=== PATIENT | female | born 1980 | race Caucasian/White ===

== ENCOUNTER 2019-11-25 11:53 | Outpatient (CLI) | payer OTHER, SELFPAY ==
--- NOTE | ~2019-11-25 | US_ITS ---
EXAMINATION: US venous doppler [facility] DATE: 11/25/2019 12:32 INDICATION: Left calf pain. TECHNIQUE: Grayscale ultrasound images without and with compression and Doppler ultrasound images of the left lower extremity veins were obtained. COMPARISON: None. FINDINGS: The visualized portions of left common femoral vein, profunda (deep) femoral vein, femoral vein, popl iteal vein, peroneal veins, posterior tibial veins, and greater saphenous vein outflow are patent. IMPRESSION: 1. No deep venous thrombosis. Reviewed, dictated and finalized at location A.
== END 2019-11-25 11:54 | disposition home or self-care (01) ==
PROVIDERS: PCP Family Medicine; Visit Provider Family Medicine
DX: M79.662 Pain in left lower leg (principal)
CPT/HCPCS: 93971

== ENCOUNTER 2020-06-22 06:39 | Outpatient (NON) | payer OTHER, SELFPAY ==
[2020-06-23 19:53] LABS: SARS-CoV-2 RNA PCR Negative
== END 2020-06-22 06:40 ==
LOC: ANHCOVIDDT 07:00
PROVIDERS: PCP Family Medicine; Visit Provider Nurse Practitioner Family
DX: Z20.828 Contact with and (suspected) exposure to other viral communicable diseases (principal); R05 Cough
CPT/HCPCS: 87635; C9803; U0003

== ENCOUNTER 2020-09-16 11:02 | Outpatient (CLI) | payer OTHER, SELFPAY ==
--- NOTE | ~2020-09-16 | US_ITS ---
US soft tissue head and neck 09/16/2020 11:31 Indication: Palpable lumps left anterior and posterior head Procedure: High-resolution Limited ultrasound in the area of palpable concern posterior to the left e ar in the posterior aspect of the head Comparison: No prior studies for comparison. Findings: Posterior to the left ear there is an 8 mm oval hypoechoic mass with internal echoes. No de finite internal vascularity or posterior features. There is parallel orientation. Along the posterior aspect of the head there is an oval complex hypoechoic mass with low level internal echoes, parallel orientation and no significant posterior features or internal vascularity. This mass measures 8 mm. Impression: 1: Complicated hypoechoic masses, most likely cystic, in the areas of palpable concern posterior to t he left ear and posterior head. Consider correlation with contrast-enhanced CT. Reviewed, dictated and finalized at location A. MBLER BICYCLE Impression: 1: Complicated hypoechoic masses, most likely cystic, in the areas of palpable concern posterior to the left ear and posterior head. Consider correlation with contrast-enhanced CT.
== END 2020-09-16 11:03 | disposition home or self-care (01) ==
LOC: ANHIMG 11:04
PROVIDERS: PCP Family Medicine; Visit Provider Physician Assistant
DX: H93.8X9 Other specified disorders of ear, unspecified ear (principal)
CPT/HCPCS: 76536

== ENCOUNTER 2020-09-28 12:36 | Outpatient (CLI) | payer OTHER, SELFPAY ==
--- NOTE | ~2020-09-28 | CT_ITS ---
EXAMINATION: CT brain wo/w con DATE: 09/28/2020 13:25 INDICATION: Posterior headache. Abnormal findings on diagnostic imaging of other specified body struc tures. TECHNIQUE: Computed tomography (CT) of the head was performed without intravenous contrast. The mA wa s adjusted according to patient size. Iterative reconstruction technique was employed. Exam dose: 12 10.67 mGy-cm total exam DLP. COMPARISON: 12/31/2016 CT brain FINDINGS: Focal approximately 9 mm area of hypoattenuation in the right basal ganglia; consider brain examination for further evaluation. No intracranial mass lesion or hemorrhage or cerebrovascular accident is noted otherwise. No midline shift or mass effect. Normal ventricular size. No subdural or epidural hematoma. No orbital mass lesion. There is prominent patchy opacification of ethmoid air cells bilaterally. The frontal, sphenoid and m axillary sinuses appear unremarkable to extent included in this examination. Mastoid air cells are no rmally developed and aerated bilaterally. No fracture or bone destruction of the cranial vault. IMPRESSION: Nonspecific 9 mm area of hypoattenuation in the right basal ganglia; consider MR imaging of the brain for further Patchy bilateral ethmoid air cell opacification Reviewed, dictated and finalized at Location A. Reviewed, dictated and finalized at location B. GER CARDIAC CATH IMPRESSION: Nonspecific 9 mm area of hypoattenuation in the right basal gangli a; consider MR imaging of the brain for further Patchy bilateral ethmoid air cell opacification
== END 2020-09-28 12:37 | disposition home or self-care (01) ==
PROVIDERS: PCP Family Medicine; Visit Provider Physician Assistant
DX: R22.0 Localized swelling, mass and lump, head (principal)
CPT/HCPCS: 70470; Q9967

== ENCOUNTER 2021-01-13 18:03 | Emergency (ER) | payer OTHER, SELFPAY ==
--- NOTE | ~2021-01-13 | XR_ITS ---
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 Pain at left first metatarsal TECHNIQUE: 4 views COMPARISON: None FINDINGS: There is chronic flattening deformity of the third metatarsal head, consistent with prior t rauma or avascular necrosis. No recent fracture or dislocation, periosteal reaction or bone destruction. IMPRESSION: No recent fracture or dislocation Reviewed, dictated and finalized at location A.
[2021-01-13 18:12] VITALS: BP 151/90; PULSE 95; RESP 16; TEMP 36.9; O2SAT 100
--- NOTE | 2021-01-13 18:56 | ED.BACK ---
HPI - Back Pain/Injury General Chief Complaint: Back Pain/Injury Stated Complaint: L FOOT PAIN/BACK PAIN Time Seen by Provider: 01/13/21 18:20 Source: patient and RN notes reviewed Mode of arrival: ambulatory Limitations: no limitations History of Present Illness HPI Narrative: Patient presents today complaining of left foot pain and low back pain. 4 days ago, patient stepped on an item in her home with her left foot and also twisted as she fell. She has been having difficulty walking due to foot and back pain since this time. She currently rates her pain 8/10 and has been taking ibuprofen without much relief. History of neuropathy in her feet. Denies numbness or tingling worse than normal in her feet. Denies numbness or tingling in her genitals. Denies any loss of bowel or bladder control. MD elicited complaint: back pain and other (Left foot pain) Related Data Allergies Allergy/AdvReac Type Severity Reaction Status Date / Time Penicillins Allergy Severe HIVES Verified 01/13/21 18:21 amoxicillin Allergy Intermediate Rash Verified 01/13/21 18:21 Review of Systems Review of Systems: Narrative: CONSTITUTIONAL: Denies body aches, fever, chills, or sweats. EYES: Denies visual changes, redness, or discharge. ENT: Denies rhinorrhea, congestion, sore throat, or otalgia. CARDIOVASCULAR: Denies chest pain, palpitations, or edema. RESPIRATORY: Denies cough or dyspnea. GASTROINTESTINAL: Denies abdominal pain, nausea, vomiting, or diarrhea. GENITOURINARY: Denies dysuria or hematuria. SKIN: Denies rash, itching, or wounds. MUSCULOSKELETAL: Denies myalgia.+ Low back pain, left foot pain NEUROLOGIC: Denies headache, numbness, tingling, or weakness. PSYCH: Denies depression or anxiety. [facility] Past Medical History Medical History Anxiety Asthma Depression Elevated blood pressure reading GERD (gastroesophageal reflux disease) GERD (gastroesophageal reflux disease) HLD (hyperlipidemia) Hx of migraines Left anterior knee pain Migraines Mild intermittent asthma without complication Neuropathy Peripheral neuropathy Seasonal allergies Wellness examination Surgical History Surgical History H/O dilation and curettage H/O tubal ligation H/O: hysterectomy History of tonsillectomy Hx of cholecystectomy S/P hysterectomy Family History Family History Father Hypertension Asthma Family history of heart disease in male family member before age 55 Family history of malignant melanoma Mother Hypertension Family history of kidney disease Family history of diabetes mellitus in first degree relative Diabetes mellitus Grandparent Family history of arthritis Family history of primary malignant neoplasm of liver Family history of heart disease in male family member before age 55 Other Alzheimer's disease Cerebrovascular accident Heart disease Social History Social History Smoking packs per day: 0.5 Smoking cigarettes per day: 10.0 Years smoked: 15 Smoking pack-years: 7.50 Smoking status: Former smoker Tobacco type: cigarettes Second hand tobacco smoke exposure: No Alcohol intake: current Substance use: never Substance use type: does not use Gender identity (if verbalized by the patient): Female Comments At time of signature, I have reviewed and agree with nursing past medical, surgical, social and family history unless otherwise noted. Please see nursing chart for further information. There is no relevant family history pertinent to the presenting complaint Exam Narrative: Exam Narrative: GENERAL: Well-appearing, well-nourished, and in no acute distress. HEAD: Normocephalic, atraumatic. EYES: EOMI. No redness or drainage. Conjunctivae normal. ENT: Mucous
== END 2021-01-13 19:00 | disposition home or self-care (01) ==
PROVIDERS: Emergency Provider Nurse Practitioner; PCP Family Medicine
DX: S99.922A Unspecified injury of left foot, initial encounter (principal); W18.09XA Striking against other object with subsequent fall, initial encounter; S39.012A Strain of muscle, fascia and tendon of lower back, initial encounter; Z87.891 Personal history of nicotine dependence; J45.909 Unspecified asthma, uncomplicated; K21.9 Gastro-esophageal reflux disease without esophagitis; E78.5 Hyperlipidemia, unspecified; G62.9 Polyneuropathy, unspecified
CPT/HCPCS: 73630; 99213; G0463

== ENCOUNTER 2021-03-07 14:28 | Emergency (ER) | payer OTHER, SELFPAY ==
--- NOTE | ~2021-03-07 | XR_ITS ---
EXAMINATION: XR knee LT 3V DATE: 03/07/2021 15:17 INDICATION: Left knee pain TECHNIQUE: Four views of the left knee were obtained. COMPARISON: None. FINDINGS: Alignment is normal. No fracture or osteochondral lesion. There is mild tricompartmental os teoarthritis characterized by tiny marginal osteophytes. There is a small knee joint effusion. Soft t issues are unremarkable. IMPRESSION: 1. Small knee joint effusion. Reviewed, dictated and finalized at location A.
[2021-03-07 14:30] VITALS: BP 149/104; PULSE 87; RESP 16; O2SAT 99
[2021-03-07 15:49] LABS: Basophils Absolute Auto 0.1 K/mm3 (0.0-0.1); Basophils Percent Auto 0.7 % (0.2-1.2); Eosinophils Absolute Auto 0.3 K/mm3 (0-0.3); Eosinophils Percent Auto 3.1 % (0-4.4); Hematocrit 40.1 % (37.0-47.0); Hemoglobin 13.2 g/dL (12.0-15.0); Immature Granulocyte Absolute 0.03 K/mm3 (0.00-0.031); Immature Granulocyte Percent A 0.3 % (0-0.5); Lymphocytes Absolute Auto 4.44 K/mm3 (0.9-3.2); Lymphocytes Percent Auto 40.2 % (18.3-44.2); Mean Corpuscular HGB Conc 32.9 g/dl (32-36); Mean Corpuscular Hemoglobin 28.6 pg (26-34); Mean Corpuscular Volume 86.8 fl (80-100); Mean Platelet Volume 10.1 fl (7.4-10.4); Monocytes Absolute Auto 0.6 K/mm3 (0.1-0.6); Monocytes Percent Auto 5.3 % (2.6-8.5); Neutrophils Absolute Auto 5.6 K/mm3 (1.3-6.7); Neutrophils Percent Auto 50.4 % (45.5-73.1); Platelet Count Result 349 k/mm3 (150-375); Red Blood Count 4.62 M/mm3 (4.2-5.4); Red Cell Distribution Width 13.3 % (11.5-14.5)
--- NOTE | 2021-03-07 16:04 | ED.GENADULT ---
HPI - General Adult General Chief complaint: Extremity Injury, Lower Stated complaint: L KNEE PAIN Time Seen by Provider: 03/07/21 14:34 Source: patient and RN notes reviewed Mode of arrival: ambulatory Limitations: no limitations History of Present Illness HPI narrative: Patient is a 40-year-old female who presents to emergency department for evaluation of left knee pain began over the weekend notes swollen tender knee notes that there is some warmth patient denies injury or trauma or similar occurrence. . Patient on arrival in no distress notes she has had difficulty bearing weight Related Data Allergies Allergy/AdvReac Type Severity Reaction Status Date / Time Penicillins Allergy Severe HIVES Verified 03/07/21 14:40 amoxicillin Allergy Intermediate Rash Verified 03/07/21 14:40 Review of Systems Review of Systems: All systems reviewed & are unremarkable except as noted in HPI and below PMFSH Past Medical History Medical History (Updated 03/07/21 @ 16:32 by Vazquez Guerrero PA-C) Anxiety Asthma Depression Elevated blood pressure reading GERD (gastroesophageal reflux disease) GERD (gastroesophageal reflux disease) HLD (hyperlipidemia) Hx of migraines Left anterior knee pain Migraines Mild intermittent asthma without complication Neuropathy Peripheral neuropathy Seasonal allergies Wellness examination Surgical History Surgical History H/O dilation and curettage H/O tubal ligation H/O: hysterectomy History of tonsillectomy Hx of cholecystectomy S/P hysterectomy Family History Family History Father Hypertension Asthma Family history of heart disease in male family member before age 55 Family history of malignant melanoma Mother Hypertension Family history of kidney disease Family history of diabetes mellitus in first degree relative Diabetes mellitus Grandparent Family history of arthritis Family history of primary malignant neoplasm of liver Family history of heart disease in male family member before age 55 Other Alzheimer's disease Cerebrovascular accident Heart disease Social History Social History Smoking packs per day: 0.5 Smoking cigarettes per day: 10.0 Years smoked: 15 Smoking pack-years: 7.50 Smoking status: Former smoker Tobacco type: cigarettes Second hand tobacco smoke exposure: No Alcohol intake: current Alcohol use details: social drinker Substance use: never Substance use type: does not use Gender identity (if verbalized by the patient): Female Exam Narrative: Exam Narrative: GENERAL: Well-appearing, well-nourished, and in no acute distress. HEAD: Normocephalic, atraumatic. EYES: PERRLA and EOMI. ENT: Nares clear, no rhinorrhea or epistaxis. Mucous membranes moist. NECK: Supple. No adenopathy or masses. CHEST: Clear to auscultation. No respiratory distress. No wheezes rales or rhonchi HEART: Regular rate and rhythm. No murmur heard. Normal peripheral pulses. ABDOMEN: Soft, nontender, nondistended EXTREMITIES: Swollen tender left knee there is no erythema no wounds SKIN: Warm, dry, no rash. NEURO: No focal deficits. Alert and oriented x3. Neurovascularly intact PSYCH: Normal mood and affect. Course Course Emergency Course: Patient in the room at this time aware of case findings treatment plan diagnosis will be placed in Dennys wrap crutches referred to orthopedist provided with reasons to return agreeing with this plan is afebrile nontoxic-appearing no distress ABCs and vital signs intact Vital Signs Vital signs: Vital Signs Pulse Rate 87 03/07/21 14:30 Respiratory Rate 16 03/07/21 14:30 Blood Pressure 149/104 H 03/07/21 14:30 Pulse Oximetry 99 03/07/21 14:30 Pulse Rate 87 03/07/21 14:30 Respiratory Rate 16 03/07/21 14:30 Blood Pressu
[2021-03-07 16:09] LABS: Anion Gap 9 mmol/L (8-16); Blood Urea Nitrogen 12 mg/dL (7-17); CRP 1.8 mg/dL (<1.0); Calcium 9.3 mg/dL (8.4-10.2); Carbon Dioxide 27 mmol/L (22-30); Chloride 101 mmol/L (98-107); Estimated CRCL calculation 118 ml/min; Estimated Glomerular Filt Rate > 60; Glucose 108 mg/dL (65-110); Potassium 4.2 mmol/L (3.4-5.0); Sodium 137 mmol/L (137-145)
--- NOTE | 2021-03-07 16:30 | PC.NURSE ---
crutch training provided. patient declined crutches stating she does not feel she can use them
[2021-03-07 16:31] LABS: Erythrocyte Sedimentation Rate 26 mm/hr (0-20)
== END 2021-03-07 16:44 | disposition home or self-care (01) ==
PROVIDERS: Emergency Medicine Emergency Medical Services; Emergency Provider Emergency Medicine; PCP Family Medicine
DX: M25.562 Pain in left knee (principal); K21.9 Gastro-esophageal reflux disease without esophagitis; E78.5 Hyperlipidemia, unspecified; J45.20 Mild intermittent asthma, uncomplicated; G62.9 Polyneuropathy, unspecified; F41.9 Anxiety disorder, unspecified; F32.9 Major depressive disorder, single episode, unspecified; Z87.891 Personal history of nicotine dependence
CPT/HCPCS: 36415; 73562; 80048; 85025; 85652; 86140; 99283

== ENCOUNTER 2021-04-18 15:51 | Emergency (ER) | payer OTHER, SELFPAY ==
--- NOTE | ~2021-04-18 | XR_ITS ---
EXAMINATION: XR ankle RT min 3V INDICATION: Right ankle pain, initial encounter TECHNIQUE: Four views of the right ankle are obtained. COMPARISON: 04/08/2004 FINDINGS: There is an acute, traumatic, closed, transverse fracture at the tip of the lateral malleol us. Diffuse soft tissue swelling of ankle is noted. The ankle mortise is intact. No additional acute osseous findings are evident. IMPRESSION: 1. Acute transverse fracture at the tip of the lateral malleolus with surrounding ankle soft tissue s welling. Reviewed, dictated and finalized at location B. IMPRESSION: 1. Acute transverse fracture at the tip of the lateral malleolus with surroundi ng ankle soft tissue swelling.
[2021-04-18 15:58] VITALS: BP 112/85; PULSE 79; RESP 16; TEMP 36.6; O2SAT 99
--- NOTE | 2021-04-18 16:52 | ED.LOWEXIN ---
HPI - Extremity Injury (Lower) General Chief Complaint: Extremity Injury, Lower Stated Complaint: INJURED R ANKLE Time Seen by Provider: 04/18/21 16:42 Source: patient and RN notes reviewed Mode of arrival: ambulatory Limitations: no limitations History of Present Illness HPI Narrative: Patient presents today complaining of right ankle injury 2 days ago. Patient states she fell into a small hole in her yard while walking. Denies numbness or tingling. She has been icing, elevating, and taking Tylenol. The Tylenol is not providing relief. She currently rates pain 01/19. MD complaint: ankle injury Related Data Allergies Allergy/AdvReac Type Severity Reaction Status Date / Time Penicillins Allergy Severe HIVES Verified 04/18/21 16:37 amoxicillin Allergy Intermediate Rash Verified 04/18/21 16:37 Review of Systems Review of Systems: CONSTITUTIONAL: Denies body aches, fever, chills, or sweats. EYES: Denies visual changes, redness, or discharge. ENT: Denies rhinorrhea, congestion, sore throat, or otalgia. CARDIOVASCULAR: Denies chest pain, palpitations, or edema. RESPIRATORY: Denies cough or dyspnea. GASTROINTESTINAL: Denies abdominal pain, nausea, vomiting, or diarrhea. GENITOURINARY: Denies dysuria or hematuria. SKIN: Denies rash, itching, or wounds. MUSCULOSKELETAL: Denies back pain, or myalgia. + Right ankle injury NEUROLOGIC: Denies headache, numbness, tingling, or weakness. PSYCH: Denies depression or anxiety. [facility] Past Medical History Medical History Anxiety Asthma Chills Chondromalacia of left patellofemoral joint Chronic headaches Depression Elevated blood pressure reading Fever GERD (gastroesophageal reflux disease) GERD (gastroesophageal reflux disease) History of MRSA infection HLD (hyperlipidemia) Hx of migraines Left anterior knee pain Migraines Mild intermittent asthma without complication Neuropathy Peripheral neuropathy Seasonal allergies Wellness examination Surgical History Surgical History H/O dilation and curettage H/O tubal ligation H/O: hysterectomy History of tonsillectomy Hx of cholecystectomy S/P hysterectomy Family History Family History Father Hypertension Asthma Family history of heart disease in male family member before age 55 Family history of malignant melanoma Mother Hypertension Family history of kidney disease Family history of diabetes mellitus in first degree relative Diabetes mellitus Grandparent Family history of arthritis Family history of primary malignant neoplasm of liver Family history of heart disease in male family member before age 55 Other Alzheimer's disease Cerebrovascular accident Heart disease High cholesterol Neuropathy Social History Social History Smoking packs per day: 0.5 Smoking cigarettes per day: 10.0 Years smoked: 9 Smoking pack-years: 4.50 Smoking status: Former smoker Tobacco type: cigarettes Second hand tobacco smoke exposure: No Smoking end date: 08/12/13 Alcohol intake: current Alcohol use details: social drinker Substance use: never Substance use type: does not use Gender identity (if verbalized by the patient): Female Comments At time of signature, I have reviewed and agree with nursing past medical, surgical, social and family history unless otherwise noted. Please see nursing chart for further information. There is no relevant family history pertinent to the presenting complaint Exam Narrative: GENERAL: Well-appearing, well-nourished, and in no acute distress. HEAD: Normocephalic, atraumatic. EYES: EOMI. No redness or drainage. Conjunctivae normal. ENT: Mucous membranes pink and moist. NECK: Normal AROM. CHEST: No respiratory distr
== END 2021-04-18 17:15 | disposition home or self-care (01) ==
PROVIDERS: Emergency Provider Nurse Practitioner; PCP Family Medicine
DX: S82.61XA Displaced fracture of lateral malleolus of right fibula, initial encounter for closed fracture (principal); W17.2XXA Fall into hole, initial encounter; J45.909 Unspecified asthma, uncomplicated; K21.9 Gastro-esophageal reflux disease without esophagitis; E78.5 Hyperlipidemia, unspecified; G62.9 Polyneuropathy, unspecified; F41.9 Anxiety disorder, unspecified; F32.9 Major depressive disorder, single episode, unspecified
CPT/HCPCS: 29515; 73610; 99214; G0463

== ENCOUNTER → 2022-01-31 11:36 | Outpatient (CLI) | payer OTHER, MEDICAID, SELFPAY ==
--- NOTE | ~2022-01-31 | XR_ITS ---
EXAM: XR knee RT min 4V, XR knee LT min 4V DATE: 01/31/2022 11:58 (accession [id number]), 01/31/2022 11:57 (accession [id number]) HISTORY: M25.561 - Pain in right knee . Pain in the left knee. COMPARISON: None available. FINDINGS: Normal mineralization. No fracture or dislocation. No lytic or blastic lesion. Moderate me dial and lateral joint space narrowing bilaterally. Tricompartmental osteophytosis. No erosion or per iosteal change. Soft tissues within normal limits. Small volume right joint space fluid. IMPRESSION: Moderate bilateral tricompartmental knee osteoarthritis. Small right knee joint effusion. Reviewed, dictated and finalized at location K. IMPRESSION: Moderate bilateral tricompartmental knee osteoarthritis. Small righ t knee joint effusion.
== END ==
PROVIDERS: PCP Physician Assistant; Visit Provider Physician Assistant
DX: M17.0 Bilateral primary osteoarthritis of knee (principal); M25.461 Effusion, right knee
CPT/HCPCS: 73564

== ENCOUNTER 2024-01-30 17:51 | Emergency (ER) | payer OTHER, SELFPAY ==
[2024-01-30 17:56] VITALS: BP 143/81; PULSE 82; RESP 20; TEMP 36.9; O2SAT 100
[2024-01-30 18:02] VITALS: BP 143/81; PULSE 82; RESP 20; TEMP 36.9; O2SAT 100
--- NOTE | 2024-01-30 18:22 | ED.SKABFB ---
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 The area is bruised in appearance and pruritic. She denies pain associated with the lesions. She has not found any ticks on her but she has found them on her animals frequently. she has not attempted any modifying factors. Her immunizations are UTD. She is not Related Data Allergies Allergy/AdvReac Type Severity Reaction Status Date / Time Penicillins Allergy Severe HIVES Verified 01/30/24 18:02 amoxicillin Allergy Intermediate Rash Verified 01/30/24 18:02 Review of Systems Constitutional: Comments: refer to [facility] Past Medical History Medical History (Updated 01/30/24 @ 18:32 by PROSPER Bowen) Anxiety Asthma Chills Chondromalacia of left patellofemoral joint Chronic headaches Depression Elevated blood pressure reading Fever Fracture of distal end of right fibula GERD (gastroesophageal reflux disease) GERD (gastroesophageal reflux disease) History of MRSA infection HLD (hyperlipidemia) Hx of migraines Left anterior knee pain Migraines Mild intermittent asthma without complication Nausea & vomiting Neuropathy Obesity Peripheral neuropathy Seasonal allergies Wellness examination Surgical History Surgical History (Updated 01/16/24 @ 17:35 by Comfort Delgado PA-C) H/O dilation and curettage H/O tubal ligation H/O: hysterectomy History of tonsillectomy Hx of cholecystectomy S/P hysterectomy Family History Family History Father Hypertension Asthma Family history of heart disease in male family member before age 55 Family history of malignant melanoma Mother Hypertension Family history of kidney disease Family history of diabetes mellitus in first degree relative Diabetes mellitus Grandparent Family history of arthritis Family history of primary malignant neoplasm of liver Family history of heart disease in male family member before age 55 Other Alzheimer's disease Cerebrovascular accident Heart disease High cholesterol Neuropathy Social History Social History Smoking packs per day: 0.5 Smoking cigarettes per day: 10.0 Years smoked: 9 Smoking pack-years: 4.50 Smoking status: Former smoker Tobacco type: cigarettes Second hand tobacco smoke exposure: No Smoking end date: 08/12/13 Alcohol intake: current Alcohol use details: social drinker Substance use: never Substance use type: does not use Living arrangements: with family Occupation/Education: occupation Gender identity (if verbalized by the patient): Female Exam Const: General: healthy appearing and no acute distress Nutritional Appearance: well nourished Orientation/consciousness: patient oriented x3 Limitations: no limitations HENMT: Head: normal to inspection Ears: external ears normal and TM's normal bilaterally Face/Nose/Sinus: Normal external nose present Face and sinus: normal facial exam Mouth: Yes Normal oral and palatal mucosa present Teeth and gingiva: dentition normal Throat: posterior oropharynx normal and uvula midline Eyes: Conjunctivae: conjunctivae normal Pupils: Equal, round and reactive pupils present EOM: EOMs intact bilaterally Direct Ophthalmoscopy: no photophobia Neck: Neck: normal visual inspection Chest: Chest palpation & inspection: normal inspection of the chest Resp: Effort & Inspection: normal respiratory effort Auscultation: clear to auscultation bilaterally Cardio: Rate: regular rate Rhythm: regular rhythm Skin: General skin exam: normal color Rashes: no rashes Wounds: no wounds Other: pt has three si
== END 2024-01-30 18:36 | disposition home or self-care (01) ==
PROVIDERS: Emergency Provider Nurse Practitioner Family; PCP Family Medicine
DX: S70.362A Insect bite (nonvenomous), left thigh, initial encounter (principal); S70.361A Insect bite (nonvenomous), right thigh, initial encounter; S30.861A Insect bite (nonvenomous) of abdominal wall, initial encounter; W57.XXXA Bitten or stung by nonvenomous insect and other nonvenomous arthropods, initial encounter; Z87.891 Personal history of nicotine dependence; K21.9 Gastro-esophageal reflux disease without esophagitis; E78.5 Hyperlipidemia, unspecified; G62.9 Polyneuropathy, unspecified; E66.9 Obesity, unspecified; Z68.33 Body mass index [BMI] 33.0-33.9, adult; J45.909 Unspecified asthma, uncomplicated; F41.9 Anxiety disorder, unspecified
CPT/HCPCS: 99213; G0463

== ENCOUNTER 2024-11-27 23:41 | Emergency (ER) | payer SELFPAY ==
--- NOTE | ~2024-11-27 | XR_ITS ---
EXAMINATION: XR hand RT min 3V DATE: 11/27/2024 23:59 INDICATION: Right hand injury TECHNIQUE: Posteroanterior, oblique and lateral views of the right hand were obtained. COMPARISON: None. FINDINGS: Alignment is normal. No fracture. Joint spaces are normal. Soft tissues are unremarkable. IMPRESSION: 1. Negative right hand radiographs. Reviewed, dictated and finalized at location A.
--- OUTSIDE RECORDS SUMMARY | 2024-11-27 23:43 | XMS_ITS | Clinical Summary ---
Author Organization [employer] [address] - [address]22 Address [address] [place] [address] Phone Care Team Providers Care Artifacts Conservator Name Role Phone Unavailable Primary Care Provider Unavailabl e Allergies Active Allergy Reactions Criticality Noted Date Comments Amoxicillin Hives High 07/30/2022 Reaction: HIVES Penicillins Rash Low 07/10/2022 Medications busPIRone (BUSPAR) 5 mg tablet Take 5 mg by mouth 3 times daily. Active gabapentin (NEURONTIN) 100 mg capsule Take 100 mg by mouth daily. Active sertraline (ZOLOFT) 100 mg tablet Take 100 mg by mouth daily. Active lisinopriL (PRINIVIL) 10 mg tablet Take 10 mg by mouth daily. Active HYDROcodone-acet aminophen (HYCET) 7.5-325 mg/15 mL SolutionIndicati ons:Severe obesity (BMI 35.0-39.9) with comorbidity (CMS/HCC) Take 15 mL by mouth every 6 hours as needed for Pain. Max Daily Amount: 60 mL 280 mL 07/31/2022 2:20 PM ADMINISTRATIVE JOB TITLES 07/30/2022 Active famotidine (PEPCID) 20 mg tablet Take 1 Tablet (20 mg) by mouth 2 times daily. 60 Tablet 2 07/31/2022 2:20 PM ADMINISTRATIVE JOB TITLES 07/30/2022 Active ondansetron (Zofran) 4 mg Tablet Take 1 Tablet (4 mg) by mouth every 8 hours as needed for Nausea or Nausea/Vomi ting. 50 Tablet 07/31/2022 2:20 PM ADMINISTRATIVE JOB TITLES 07/30/2022 Active Active Problems No known active problems Social History Tobacco Use Types Packs/Day Years Used Date Smoking Tobacco: Former Cigarettes Q uit: 2013 Smokeless Tobacco: Never Tobacco Cessation:Counseling Given: Not Answered Alcohol Use Standard Drinks/Week Comments Yes 0 (1 standard drink = 0.6 oz pur e alcohol) occasionally Comments No Sex and Gender Information Value Date Recorded Sex Assigned at Not on file Legal Sex Female 2:51 AM ADMINISTRATIVE JOB TITLES Gender Identity Not on file Sexual Orientation Not on file Last Filed Vital Signs Vital Sign Reading Time Taken Comments Blood Pressure 152/78 07/31/2022 12:44 PM ADMINISTRATIVE JOB TITLES Pulse 69 07/31/2022 12:44 PM ADMINISTRATIVE JOB TITLES Temperature 36.4 C (97.6 F) 07/31/2022 12:44 PM ADMINISTRATIVE JOB TITLES Respiratory Rate 18 07/31/2022 4:29 AM ADMINISTRATIVE JOB TITLES Oxygen Saturation 97% 07/31/2022 12:44 PM ADMINISTRATIVE JOB TITLES Inhaled Oxygen Concentration - - Weight 153.3 kg (338 lb) 07/30/2022 6:35 AM ADMINISTRATIVE JOB TITLES Height 165.1 cm (5' 5 ) 07/30/2022 6:35 AM ADMINISTRATIVE JOB TITLES Body Mass Index 56.25 07/30/2022 6:35 AM ADMINISTRATIVE JOB TITLES Plan of Treatment Health Maintenance Due Date Last Done Comments DTAP/TDAP/TD VACCINES (1 - Tdap) 2001 HEPATITIS B VACCINES (1 of 3 - 19+ 3-dose series) 2001 HPV/Cotest (21-29) 2003 CERVICAL CANCER SCREENING 2012 HPV/Cotest (30-65) 2012 PAP SMEAR 2012 BREAST CANCER SCREENING 2022 INFLUENZA VACCINE (#1) 2024 HPV VACCINES Aged Out No longer eligi ble based on patient's age to complete this topic Medical Devices Implanted Type Area Remedy Developer Device Identifier Shelf Expiration Date Model / Serial / Lot Seamguard Endogia 60 Blk [id number] - [id number] Implanted:Qt y: 1 on 07/30/2022 by Antione Parisi MD at [facility] N/A: Stomach [employer] [id number] 01/20/2025 12BSGTRI 60B / / [id number] Seamguard Endogia 60 Blk [id number] - [id number] Implanted:Qt y: 1 on 07/30/2022 by Antione Parisi MD at [facility] N/A: Stomach [employer] [id number] 03/13/2025 12BSGTRI 60B / / [id number] Seamguard Endogia 60 Prpl [id number] - [id number] Implanted:Qt y: 1 on 07/30/2022 by Antione Parisi MD at [facility] N/A: Stomach [employer] [id number] 04/07/2025 12BSGTRI 60P / / [id number] Seamguard Endogia 60 Prpl [id number] - [id number] Implanted:Qt y: 1 on 07/30/2022 by Antione Parisi MD at [facility] N/A: Stomach [employer] [id number] 02/18/2025 12BSGTRI 60P / / [id number] Seamguard Endogia 60 Prpl [id number] - [id number] Implanted:Qt y: 1 on 07/30/2022 by Antione Parisi MD at [facility] N/A: Stomach [employer] [id number] 02/18/2025 12BSGTRI 60P / / [id number] Insurance [facility] [id number] MEDICAID [place] RX [employer] Express RX [employer] (INTERNAL) [facility] Internal Plans Advance Directives For more information, please contact: [phone] * Full Code (Latest Code Status on File) Date Activated Date Inactivated Comments 07/30/2022 8:41 PM 07/31/2022 4:30 PM * Full Code Date Activated Date Inactivated Comments 07/30/2022 6:26 AM 07/30/2022 8:41 PM * Full Code Date Activated Date Inactivated Comments 07/20/2022 8:25 AM 07/20/2022 11:33 AM
--- OUTSIDE RECORDS SUMMARY | 2024-11-27 23:43 | XMS_ITS | Encounter Summary ---
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 [H04.222] Procedures NC DACRYOCSTORHINOSTOMY DACRYOCYSTORHINOSTOMY Referral ID Status Reason Start Date Expiration Date Visits Re quested Visits Authorized [id number] 1 1 Encounter Details Date Type Department Care Team (Late st Contact Info) Description 08/11/2024 Hospital Encounter [facility] [address] [place] [address] Joey Atwood MD [address] [id number] Social History Tobacco Use Types Packs/Day Years Used Date Smoking Tobacco: Former Cigarettes 1 - 2013 Vaping Started: 2013 Smokeless Tobacco: Never AUDIT-C Answer Date Recorded Q1: How often do you have a drink containing alc ohol? 2-4 times a month 08/31/2024 Q2: How many drinks containi ng alcohol do you have on a typical day when you are drinking? 3 or 4 08/31/2024 Q3: How often do you have si x or more drinks on one occasion? Monthly 08/31/2024 Personal Safety Answer Date Recorded Have you ever been in or are you currently in a harmful physical or emotional relationship or is someone making you feel afraid or unsafe? Denies 08/31/2024 Comments No Sex and Gender Information Value Date Recorded Sex Assigned at Not on file Legal Sex Female 2:07 PM BALL WORKER Gender Identity Not on file Sexual Orientation Not on file documented as of this encounter Functional Status * Audit-C Score Answer Date of Assessment Author 5 08/31/2024 10:44 AM Glenna Morrison RN * Question Answer Date of Assessment Author Q1: How often do you have a drink containing alcohol? 2-4 times a month 08/31/2024 10:44 AM Glenna Mckenna RN Q2: How many drinks containing alcohol do you have on a typical day when you are drinking? 3 or 4 08/31/2024 10:44 AM Glenna Mckenna RN Q3: How often do you have six or more drinks on one occasion? 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
--- OUTSIDE RECORDS SUMMARY | 2024-11-27 23:43 | XMS_ITS | Clinical Summary ---
Author Organization [facility] Address [address] [place] [address] Phone Care Team Providers Care Hand Fretted Instrument Maker Name Role Phone Virgil Tracy MD Primary Care Provider Allergies Active Allergy Reactions Criticality Noted Date Comments Amoxicillin Hives Reaction: HIVES Penicillins Hives,Rash High 07/10/2022 Reaction: HIVES Medications pantoprazole DR (PROTONIX) 20 mg EC tabletIndications: Treatment of Non-Bleeding Gastric Disorder Take 1 tablet (20 mg total) by mouth every morning 4 Active ondansetron (ZOFRAN) 4 mg tablet Take 1 tablet (4 mg total) by mouth every 8 (eight) hours as needed 2 Active LORazepam (ATIVAN) 0.5 mg tabletIndications: sleep Take 1 tablet (0.5 mg total) by mouth daily as needed (sleep) 4 Active lisinopriL (PRINIVIL,ZESTRIL) 10 mg tabletIndications: hypertension Take 1 tablet (10 mg total) by mouth nightly Active cyanocobalamin (Vitamin B-12) 1,000 mcg/mL injectionIndicatio ns:Vitamin B12 Deficiency Inject 1 mL (1,000 mcg total) into the muscle as instructed every 30 (thirty) days Last took 08-18-24 4 Active albuterol HFA (PROVENTIL HFA,VENTOLIN HFA,PROAIR HFA) 90 mcg/actuation inhalerIndications :Bronchospasm Prevention,seasona l allergies Inhale 1 puff every 6 (six) hours as needed for wheezing or shortness of breath 4 Active ondansetron ODT (ZOFRAN-ODT) 4 mg disintegrating tabletIndications: n/v Take 1 tablet (4 mg total) by mouth every 8 (eight) hours as needed for nausea or vomiting 4 Active ibuprofen 200 mg tab/capIndications :Pain Take 2 tablet/capsule (400 mg total) by mouth every 6 (six) hours as needed for pain Active multivitamin tabletIndications: Vitamin Deficiency Prevention Take 1 tablet by mouth every morning Active erythromycin (ILOTYCIN) ophthalmic ointment Apply ointment to left eyelid incisions [address] ointment inside the eye for irritation. 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 (Primary Dx) 09/09/2024 9:00 AM TRAINING ENGINEER Office Visit [facility] [address] [place] [phone] Joey Atwood MD Tearing, left (Primary Dx) 09/03/2024 Telephone [facility] [address] [place] [phone] Joey Atwood MD 08/31/2024 12:00 PM TRAINING ENGINEER - 08/31/2024 1:30 PM TRAINING ENGINEER Surgery [facility] Operating [facility] ([facility]) [address] [place] [phone] Joey Atwood MD DACRYOCYSTORHINOSTOMY 08/31/2024 11:48 AM TRAINING ENGINEER Anesthesia Event [facility]) [address] [place] [address] Cy Hsu MD Maue, Jessica Brooke, NP 08/31/2024 10:00 AM TRAINING ENGINEER - 08/31/2024 1:50 PM TRAINING ENGINEER Hospital Encounter [facility] Operating [facility]) [address] [place] [phone] Joey Atwood MD Lesion of conjunctiva [H11.9] (Primary Dx); Tearing, left Discharge Disposition: Discharge to home or self care from Last 3 Months Surgical History Surgery Date Site/Laterality Comments HYSTERECTOMY 08/12/2015 - 08/11/2016 GASTRIC RESTRICTION SURGERY 08/12/2022 - 08/11/2023 TONSILLECTOMY CHOLECYSTECTOMY 08/12/2008 - 08/11/2009 DACRYOCYSTORHINOPLASTY 08/31/2024 Left dacryocystorhinostomy Medical History Medical History Date Comments Hypertension PONV (postoperative nausea and vomiting) Awareness under anesthesia with light sedation Family History Medical History Relation Name Comments Macular degeneration Father Diabetes Maternal Grandmother Anesthesia problems Mother PONV Diabetes Mother Thyroid disease Mother Macular degeneration Paternal Grandmother Glaucoma Neg Hx Relation Name Status Comments Father Maternal Grandmother Mother Paternal Grandmother Social History Tobacco Use Types Packs/Day Years Used Date Smoking Tobacco: Former Cigarettes 1 - 2013 Vaping Started: 2013 Smokeless Tobacco: Never Tobacco Cessation:Counseling Given: Not Answered AUDIT-C Answer Date Recorded Q1: How often [...] on file Legal Sex Female 2:07 PM TRAINING ENGINEER Gender Identity Not on file Sexual Orientation Not on file Obstetrics History Last Filed Vital Signs Vital Sign Reading Time Taken Comments Blood Pressure 99/71 08/31/2024 1:40 PM TRAINING ENGINEER Pulse 58 08/31/2024 1:40 PM TRAINING ENGINEER Temperature 36.2 C (97.2 F) 08/31/2024 1:05 PM TRAINING ENGINEER Respiratory Rate 15 08/31/2024 1:40 PM TRAINING ENGINEER Oxygen Saturation 96% 08/31/2024 1:40 PM TRAINING ENGINEER Inhaled Oxygen Concentration - - Weight 86.2 kg (190 lb) 08/31/2024 10:45 AM TRAINING ENGINEER Height 165.1 cm (5' 5 ) 08/31/2024 10:45 AM TRAINING ENGINEER Body Mass Index 31.62 08/31/2024 10:45 AM TRAINING ENGINEER Plan of Treatment Health Maintenance Due Date Last Done Comments Breast Cancer Screening-Mammogram 1982 Depression Screening 1982 Hepatitis C Screening 1982 DTaP/Tdap/Td Vaccine (1 - Tdap) 1993 Varicella Vaccines (1 of 2 - 13+ 2-dose series) 1995 Hepatitis B Screening 2000 Regular Well Visit/Exam 18-64 2000 Covid-19 Vaccine (2 - 2023-2 5 season) 2024 10/20/2020 Influenza Vaccine (Season Ended) 2025 05/26/20 17 HPV Vaccines Aged Out No longer eligi ble based on patient's age to complete this topic Pneumococcal vaccine <65 Aged Out No longer eligible based on patient's age to complete this topic Procedures Procedure Name Priority Date/Time Associated Diagnosis Comments SURGICAL PATHOLOGY Routine 08/31/2024 12:11 PM TRAINING ENGINEER Tearing, left EXCISION CONJUCTIVA 08/31/2024 11:51 AM TRAINING ENGINEER Tearing, left Case Notes 08/22@1026: Per via phone call, Dr. Atwood does not have clinic so he is able to start at 1200. SR DACRYOCYSTORHINOSTOMY 08/31/2024 11:51 AM TRAINING ENGINEER Tearing, left Case Notes 08/22@1026: Per via phone call, Dr. Atwood does not have clinic so he is able to start at 1200. SR from Last 3 Months Results * Surgical pathology (08/31/2024 12:11 PM TRAINING ENGINEER) Tissue specimen (specimen) (Mass/Tumor/Lesio n) 08/31/2024 12:11 PM TRAINING ENGINEER Narrative PATHOLOGY [facility] - 09/05/2024 7:49 PM TRAINING ENGINEER EPIC results best viewed via link to PDF [facility] [place] [address] Note to Patients: This report may contain a detailed description of human tissue sent by a health care provider to the laboratory for pathologic evaluation. The content of this report is essential for diagnosis and may provide important critical findings. This information may be unfamiliar to patients to review without a medical professional present. It is advised that the patient review this report in the presence of a health care provider who can answer questions and explain the details. SURGICAL PATHOLOGY REPORT FINAL Patient Name: DL BEGUM Gender: F : 1980 (Age: 44) Address: [address] [place], [place] [phone] Hospital #: [id number] Taken:08/31/2024 Received:08/31/2024 Reported: 09/05/2024 Patient Type: [facility] Service: Surgery Location: Physician(s): Denita Lam M.D. Diagnosis: Conjunctiva, left caruncle, excisional biopsy: - Intrastromal melanocytic nevus [facility]/09/05/2024 19:49 By this signature, I attest that the above diagnosis is based upon my personal examination of the slides(and/or other material indicated in the diagnosis). Xavier Freed M.D. Report Electronically Reviewed and Signed Out By Xavier Freed M.D. 09/05/2024 19:49:55 Microscopic Description and Comment: Sections show a transition from non-keratinizing epithelium to keratinizing epithelium without granular layer, consistent with the caruncular location. Within the stroma, there is a proliferation of melanocytes, mostly arranged in one contiguous nest, exhibiting small nuclei without visible nucleoli, and with some containing melanin pigment in the cytoplasm. Neurotization (maturation) is appreciated toward the base of the lesion. No mitotic figures are identified. Several epithelial inclusion cysts are identified in association with the lesion. On account of the small size of the lesional cells, immunostaining was obtained to definitively distinguish melanocytes from lymphocytes and to rule out the possibility of a clonal lymphocyte population, as follows: MelanA-red highlights all the lesional cells, confirming the melanocytic origin. CD3 highlights only one small cluster of cells and a few scattered cells, consistent with T cells, whereas CD20 highlights only a few scattered B cells. CD43 and CD5 highlight the T cells, similar to CD3, not exhibiting any aberrant expression in the B-cell population. Loda and lambda in situ hybridization each highlight a few plasma cells, in approximately a 1:1 ratio. In summary, immunohistochemistry confirms the diagnosis of intrastromal melanocytic nevus, and there is no evidence of lymphoma, nor is there any significant chronic inflammatory reaction. The melanocytic nevus extends to at least one peripheral (inked) margin. History: The patient is a 44-year-old woman who presents with left tearing. As per the clinical records, the patient's symptoms were first noted about a year prior to presentation, and there was no history of nasolacrimal duct infection, orbital surgery, or orbital trauma. Operative procedure: dacryocystorhinostomy, left. As per the operative report, the left caruncle lesion was noted intraoperatively, appearing as a slightly elevated, pigmented lesion at the junction between the caruncle and inferior fornix, measuring 2 x 3 mm. The patient reported that it had been present for many years. Specimen(s) Received: A: Left eye conjunctival caruncle lesion Gross Description: Received in formalin labeled with the patient's identifiers and designated left conjunctival caruncle lesion is an unoriented shave/excision of dang mucosa (0.3 x 0.2 x 0.1 cm) with a central brown-dang papule (0.2 cm). The margin is inked blue, and the specimen is submitted intact and on edge in A1. Jar 0. sxv/09/01/2024 10:37 PA(s): Ata Dooley, MS, PA ([facility])CM By this signature, I attest that the above diagnosis is based upon my personal examination of the slides(and/or other material). Addenda/Procedures The performance characteristics of some immunohistochemical stains, fluorescence in-situ hybridization tests and immunophenotyping by flow cytometry cited in this report (if any) were determined by the Surgical Pathology and Flow Cytometry Departments at [facility] as part of an ongoing quality control inspector program and in compliance with federally mandated regulations drawn from the Clinical Laboratory Improvement Act of 1988 (CLIA '88). Some of these tests rely on the use of analyte specific reagents and are subject to specific labeling requirements by the US Food and Drug Administration. Such diagnostic tests may only be performed in a facility that is certified by the Department of Health and Human Services as a high complexity laboratory under CLIA '88. The FDA has determined that such clearance or approval is not necessary. This test is used for clinical purposes. It should not be regarded as investigational or for research. Nevertheless, federal rules concerning the medical use of analyte specific reagents require that the following disclaimer be attached to the report: This test was developed and its performance characteristics determined by the Surgical Pathology and Flow Cytometry Departments of [facility]. It has not been cleared or approved by the U. S. Food and Drug Administration. IMAGES AND SCANNED DOCUMENTS, IF INCLUDED, ONLY VIEWABLE IN PDF VERSION OF REPORT Joey Atwood MD LAB PATHOLOGY ORDERABLES Fin al Result PATHOLOGY [facility] [address]rd Floor [place], [place] [phone] from Last 3 Months Insurance [employer] [facility] [employer] [facility] Care Teams Hand Fretted Instrument Maker Relationship Specialty Start Date End Date Virgil Tracy MD [address] [facility] [address] [place] [address] PCP - General Family Medicine 12/04/23
--- OUTSIDE RECORDS SUMMARY | 2024-11-27 23:43 | XMS_ITS | Referral Summary ---
Author Organization [facility] Address [address] [place] [address] Phone Care Team Providers Care Reinsurance Claim Analyst Name Role Phone Virgil Tracy MD Primary Care Provider Encounters Date Type Department Care Team Description 10/07/2024 10:00 AM ROLLING MILL OPERATOR HELPER Office Visit [facility] Ophthalmology [facility] [address] [phone] Joey Atwood MD Epiphora due to insufficient drainage of left side (Primary Dx) 09/09/2024 9:00 AM ROLLING MILL OPERATOR HELPER Office Visit [facility] Ophthalmology [address] [place] [phone] Joey Atwood MD Tearing, left (Primary Dx) 09/03/2024 Telephone [facility] Ophthalmology [address] [place] [phone] Joey Atwood MD 08/31/2024 12:00 PM ROLLING MILL OPERATOR HELPER - 08/31/2024 1:30 PM ROLLING MILL OPERATOR HELPER Surgery [facility] ([facility]) [address] [place] [address] Joey Atwood MD DACRYOCYSTORHINOSTOMY 08/31/2024 11:48 AM ROLLING MILL OPERATOR HELPER Anesthesia Event [facility] ([facility]) [address] [place] [address] Cy Hsu MD Maue, Jessica Brooke, NP 08/31/2024 10:00 AM ROLLING MILL OPERATOR HELPER - 08/31/2024 1:50 PM ROLLING MILL OPERATOR HELPER Hospital Encounter [facility] ([facility]) [address] [place] [address] Joey Atwood MD Lesion of conjunctiva [H11.9] (Primary Dx); Tearing, left Discharge Disposition: Discharge to home or self care from Last 3 Months Allergies Active Allergy Reactions Criticality Noted Date [...] hours as needed for nausea or vomiting Active ibuprofen 200 mg tab/capIndications :Pain Take 2 tablet/capsule (400 mg total) by mouth every 6 (six) hours as needed for pain Active multivitamin tabletIndications: Vitamin Deficiency Prevention Take 1 tablet by mouth every morning Active erythromycin (ILOTYCIN) ophthalmic ointment Apply ointment to left eyelid incisions [address] ointment inside the eye for irritation. 3.5 g 3 Active Active Problems Problem Noted Date Diagnosed Date Tearing, left 08/20/2024 Epiphora due to insufficient drainage of left si de 08/03/2024 Social History Tobacco Use Types Packs/Day Years Used Date Smoking Tobacco: Former Cigarettes 1 15 1 - 2013 Vaping Started: 2013 Smokeless [...] on file Legal Sex Female 2:07 PM ROLLING MILL OPERATOR HELPER Gender Identity Not on file Sexual Orientation Not on file Last Filed Vital Signs Vital Sign Reading Time Taken Comments Blood Pressure 99/71 08/31/2024 1:40 PM ROLLING MILL OPERATOR HELPER Pulse 58 08/31/2024 1:40 PM ROLLING MILL OPERATOR HELPER Temperature 36.2 C (97.2 F) 08/31/2024 1:05 PM ROLLING MILL OPERATOR HELPER Respiratory Rate 15 08/31/2024 1:40 PM ROLLING MILL OPERATOR HELPER Oxygen Saturation 96% 08/31/2024 1:40 PM ROLLING MILL OPERATOR HELPER Inhaled Oxygen Concentration - - Weight 86.2 kg (190 lb) 08/31/2024 10:45 AM ROLLING MILL OPERATOR HELPER Height 165.1 cm (5' 5 ) 08/31/2024 10:45 AM ROLLING MILL OPERATOR HELPER Body Mass Index 31.62 08/31/2024 10:45 AM ROLLING MILL OPERATOR HELPER Plan of Treatment Not on file Procedures Procedure Name Priority Date/Time Associated Diagnosis Comments SURGICAL PATHOLOGY Routine 08/31/2024 12:11 PM ROLLING MILL OPERATOR HELPER Tearing, left EXCISION CONJUCTIVA 08/31/2024 11:51 AM ROLLING MILL OPERATOR HELPER Tearing, left Case Notes 08/22@1026: Per via phone call, Dr. Atwood does not have clinic so he is able to start at 1200. SR DACRYOCYSTORHINOSTOMY 08/31/2024 11:51 AM ROLLING MILL OPERATOR HELPER Tearing, left Case Notes 08/22@1026: Per via phone call, Dr. Atwood does not have clinic so he is able to start at 1200. SR from Last 3 Months Results * Surgical pathology (08/31/2024 12:11 PM ROLLING MILL OPERATOR HELPER) Tissue specimen (specimen) (Mass/Tumor/Lesio n) 08/31/2024 12:11 PM ROLLING MILL OPERATOR HELPER Narrative PATHOLOGY [facility] - 09/05/2024 7:49 PM ROLLING MILL OPERATOR HELPER EPIC results best viewed via link to PDF [facility] [place] [address] Note to Patients: This report may contain [...] Gender: F : 1980 (Age: 44) Address: [address] [place] [phone] Hospital #: [id number] Taken:08/31/2024 Received:08/31/2024 Reported: 09/05/2024 Patient Type: [facility] Service: Surgery Location: Physician(s): Joey Atwood M.D. Virgil Tracy M.D. Diagnosis: Conjunctiva, left caruncle, excisional biopsy: - Intrastromal melanocytic [facility]/09/05/2024 19:49 By this signature, I attest that [...] any aberrant expression in the B-cell population. [place] and lambda in situ hybridization each highlight [...] A1. Jar 0. sxv/09/01/2024 10:37 PA(s): Ata Dooley MS, PA ([facility])CM By this signature, I attest that the above diagnosis is based upon my personal examination of the slides(and/or other material). Addenda/Procedures The performance characteristics of some immunohistochemical stains, fluorescence in-situ hybridization tests and immunophenotyping by flow cytometry cited in this report (if any) were determined by the Surgical Pathology and Flow Cytometry Departments at [facility] as part of an ongoing supplier quality program and in compliance with federally mandated [...] Surgical Pathology and Flow Cytometry Departments of [facility]. It has not been cleared or approved by the U. S. Food and Drug Administration. IMAGES AND SCANNED DOCUMENTS, IF INCLUDED, ONLY VIEWABLE IN PDF VERSION OF REPORT Joey Atwood MD LAB PATHOLOGY ORDERABLES Fin al Result PATHOLOGY [facility] 3rd Floor [place], [place] [phone] from Last 3 Months Insurance [facility] Care Teams Reinsurance Claim Analyst Relationship Specialty Start Date End Date Virgil Tracy MD [address] [place] [address] PCP - General Family Medicine 12/04/23
--- OUTSIDE RECORDS SUMMARY | 2024-11-27 23:43 | XMS_ITS | Continuity of Care Document ---
Author Organization [facility] Address [address] [place] [address] Phone Care Team Providers Care Stratigrapher Name Role Phone Unavailable Unavailable Unavailable Advance Directives Directive Yes / No Effective Date File Name No Information Encounters Encounter Description Practice Location Reason(s) For Visit Diagnoses Date Provider Providers Copied on Encounter [facility], [address], [place], [place], [id number], tel:[phone] [facility] No Information No Information Referring Provider: CARLEE Hollis, [address], [place], [address]. tel:[phone] Family History Family Member Type Diagnosis Age At Onset No Information Payers Payer name Insurance type Covered green party ID Authoriza tinick(s) [facility] IN[facility]MNITY [id number] Social History Type Description Quantity Date Captured Comments Sex Female Smoking Status No Information Chief Complaint And Reason For Visit No Information History Of Present Illness Encounter Date Complaint History Of Prese nt Illness No Information Instructions Date Instruction Additional Infor mation No Information Assessments Type Assessment Date No Information
[2024-11-27 23:44] VITALS: BP 139/96; PULSE 90; RESP 16; TEMP 36.4; O2SAT 100
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
--- NOTE | 2024-11-28 00:05 | PC.NURSE ---
Pt provided with ice pack.
[2024-11-28] MEDS: HYDROcodone/acetaminophen (*CRX) 5-325 MG TABLET 1 TAB PO (00:15)
[2024-11-28 00:23] VITALS: BP 120/84; PULSE 78; RESP 20; O2SAT 97
--- OUTSIDE RECORDS SUMMARY | 2024-11-28 00:35 | XMS_ITS | Continuity of Care Document ---
Author Organization [facility] Address [address] [place] [address] Phone Care Team Providers Care Dinkey Skinner Name Role Phone Unavailable Unavailable Unavailable Advance Directives Directive Yes / No Effective Date File Name No Information Encounters Encounter Description Practice Location Reason(s) For Visit Diagnoses Date Provider Providers Copied on Encounter [facility], [address], [place], [place], [id number], tel:[phone] [facility] No Information No Information Referring Provider: CARLEE Hollis, [address], [place], [address]. tel:[phone] Family History Family Member Type Diagnosis Age At Onset No Information Payers Payer name Insurance type Covered republican ID Authoriza tinick(s) [facility] IN[facility]MN[facility] [id number] Social History Type Description Quantity Date Captured Comments Sex Female Smoking Status No Information Chief Complaint And Reason For Visit No Information History Of Present Illness Encounter Date Complaint History Of Prese nt Illness No Information Instructions Date Instruction Additional Infor mation No Information Assessments Type Assessment Date No Information
--- OUTSIDE RECORDS SUMMARY | 2024-11-28 00:35 | XMS_ITS | Clinical Summary ---
Author Organization [employer] [address] - [address] Address [address] 3rd [place] [address] Phone Care Team Providers Care Auto Headlight Mechanic Name Role Phone Unavailable Primary Care Provider [...] 60 mL 280 mL 07/31/2022 2:20 PM STRETCHING MACHINE OPERATOR 07/30/2022 Active famotidine (PEPCID) 20 mg tablet Take 1 Tablet (20 mg) by mouth 2 times daily. 60 Tablet 2 07/31/2022 2:20 PM STRETCHING MACHINE OPERATOR 07/30/2022 Active ondansetron (Zofran) 4 mg Tablet Take 1 Tablet (4 mg) by mouth every 8 hours as needed for Nausea or Nausea/Vomi ting. 50 Tablet 07/31/2022 2:20 PM STRETCHING MACHINE OPERATOR 07/30/2022 Active Active Problems No known active [...] on file Legal Sex Female 2:51 AM STRETCHING MACHINE OPERATOR Gender Identity Not on file Sexual Orientation Not on file Last Filed Vital Signs Vital Sign Reading Time Taken Comments Blood Pressure 152/78 07/31/2022 12:44 PM STRETCHING MACHINE OPERATOR Pulse 69 07/31/2022 12:44 PM STRETCHING MACHINE OPERATOR Temperature 36.4 C (97.6 F) 07/31/2022 12:44 PM STRETCHING MACHINE OPERATOR Respiratory Rate 18 07/31/2022 4:29 AM STRETCHING MACHINE OPERATOR Oxygen Saturation 97% 07/31/2022 12:44 PM STRETCHING MACHINE OPERATOR Inhaled Oxygen Concentration - - Weight 153.3 kg (338 lb) 07/30/2022 6:35 AM STRETCHING MACHINE OPERATOR Height 165.1 cm (5' 5 ) 07/30/2022 6:35 AM STRETCHING MACHINE OPERATOR Body Mass Index 56.25 07/30/2022 6:35 AM STRETCHING MACHINE OPERATOR Plan of Treatment Health Maintenance Due Date [...] this topic Medical Devices Implanted Type Area Sales Representatives Device Identifier Shelf Expiration Date Model / Serial / Lot Seamguard Endogia 60 Blk [id number] - [id number] Implanted:Qt y: 1 on 07/30/2022 by Antione Parisi MD at [facility] N/A: Stom[employer] [id number] 01/20/2025 12BSGTRI 60B / / [id number] Seamguard Endogia 60 Blk [id number] - [id number] Implanted:Qt y: 1 on 07/30/2022 by Antione Parisi MD at [facility] N/A: Stomach [employer] [id number] 03/13/2025 12BSGTRI 60B / / [id number] Seamguard Endogia 60 Prpl [id number] - [id number] Implanted:Qt y: 1 on 07/30/2022 by Antione Parisi MD at [facility] N/A: Stomach [employer] [id number] 04/07/2025 12BSGTRI 60P / / [id number] Seamguard Endogia 60 Prpl [id number] - [id number] Implanted:Qt y: 1 on 07/30/2022 by Antione Parisi MD at [facility] N/A: Stomach [employer] [id number] 02/18/2025 12BSGTRI 60P / / [id number] Seamguard Endogia 60 Prpl [id number] - [id number] Implanted:Qt y: 1 on 07/30/2022 by Antione Parisi MD at [facility] N/A: Stomach [employer] [id number] 02/18/2025 12BSGTRI 60P / / [id number] Insurance [facility] [id number] MEDICAID [place] RX EXPRESS [employer] Express RX [employer] PLANS (INTERNAL) [facility] Internal Plans Advance Directives For more information, please contact: [phone] * Full Code (Latest Code Status on File) Date Activated Date Inactivated Comments 07/30/2022 8:41 PM 07/31/2022 4:30 PM * Full Code Date Activated Date Inactivated Comments 07/30/2022 6:26 AM 07/30/2022 8:41 PM * Full Code Date Activated Date Inactivated Comments 07/20/2022 8:25 AM 07/20/2022 11:33 AM
--- OUTSIDE RECORDS SUMMARY | 2024-11-28 00:35 | XMS_ITS | Clinical Summary ---
Author Organization [facility] Address [address] [place] [address] Phone Care Team Providers Care High School Teacher Name Role Phone Virgil Tracy MD Primary [...] Department Care Team Description 10/07/2024 10:00 AM ENVELOPE SEALER Office Visit [facility] Ophthalmology [address] [place] [address] [place] [phone] Joey Atwood MD Epiphora due to insufficient drainage of left side (Primary Dx) 09/09/2024 9:00 AM ENVELOPE SEALER Office Visit [facility] Ophthalmology [address] [place] [phone] Joey Atwood MD Tearing, left (Primary Dx) 09/03/2024 Telephone [facility] Ophthalmology [address] [place] [phone] Joey Atwood MD 08/31/2024 12:00 PM ENVELOPE SEALER - 08/31/2024 1:30 PM ENVELOPE SEALER Surgery [facility] ([facility]) [address] [place] [address] Joey Atwood MD DACRYOCYSTORHINOSTOMY 08/31/2024 11:48 AM ENVELOPE SEALER Anesthesia Event [facility] ([facility]) [address] [place] [address] Cy Hsu MD Maue, Jessica Brooke, NP 08/31/2024 10:00 AM ENVELOPE SEALER - 08/31/2024 1:50 PM ENVELOPE SEALER Hospital Encounter [facility] ([facility]) [address] [place] [address] Joey Atwood MD Lesion of conjunctiva [H11.9] [...] on file Legal Sex Female 2:07 PM ENVELOPE SEALER Gender Identity Not on file Sexual Orientation Not on file Obstetrics History Last Filed Vital Signs Vital Sign Reading Time Taken Comments Blood Pressure 99/71 08/31/2024 1:40 PM ENVELOPE SEALER Pulse 58 08/31/2024 1:40 PM ENVELOPE SEALER Temperature 36.2 C (97.2 F) 08/31/2024 1:05 PM ENVELOPE SEALER Respiratory Rate 15 08/31/2024 1:40 PM ENVELOPE SEALER Oxygen Saturation 96% 08/31/2024 1:40 PM ENVELOPE SEALER Inhaled Oxygen Concentration - - Weight 86.2 kg (190 lb) 08/31/2024 10:45 AM ENVELOPE SEALER Height 165.1 cm (5' 5 ) 08/31/2024 10:45 AM ENVELOPE SEALER Body Mass Index 31.62 08/31/2024 10:45 AM ENVELOPE SEALER Plan of Treatment Health Maintenance Due Date [...] Comments SURGICAL PATHOLOGY Routine 08/31/2024 12:11 PM ENVELOPE SEALER Tearing, left EXCISION CONJUCTIVA 08/31/2024 11:51 AM ENVELOPE SEALER Tearing, left Case Notes 08/22@1026: Per via phone call, Dr. Atwood does not have clinic so he is able to start at 1200. SR DACRYOCYSTORHINOSTOMY 08/31/2024 11:51 AM ENVELOPE SEALER Tearing, left Case Notes 08/22@1026: Per via phone call, Dr. Atwood does not have clinic so he is able to start at 1200. SR from Last 3 Months Results * Surgical pathology (08/31/2024 12:11 PM ENVELOPE SEALER) Tissue specimen (specimen) (Mass/Tumor/Lesio n) 08/31/2024 12:11 PM ENVELOPE SEALER Narrative PATHOLOGY [facility] - 09/05/2024 7:49 PM ENVELOPE SEALER EPIC results best viewed via link to PDF [facility] [place] [address] Note to Patients: This report may contain [...] Gender: F : 1980 (Age: 44) Address: [address] [place], [place] [address] Hospital #: [id number] Taken:08/31/2024 Received:08/31/2024 Reported: 09/05/2024 Patient Type: [facility] Service: Surgery Location: Physician(s): Denita Lam M.D. Diagnosis: Conjunctiva, left caruncle, excisional biopsy: - Intrastromal melanocytic [facility]/09/05/2024 19:49 By this signature, I attest [...] any aberrant expression in the B-cell population. [place] and lambda in situ hybridization each highlight [...] sxv/09/01/2024 10:37 PA(s): Ata Dooley, MS, PA ([facility])CM By this signature, I attest that the above diagnosis is based upon my personal examination of the slides(and/or other material). Addenda/Procedures The performance characteristics of some immunohistochemical stains, fluorescence in-situ hybridization tests and immunophenotyping by flow cytometry cited in this report (if any) were determined by the Surgical Pathology and Flow Cytometry Departments at [facility] as part of an ongoing supplier quality engineer program and in compliance with federally mandated [...] Surgical Pathology and Flow Cytometry Departments of [facility]. It has not been cleared or approved by the U. S. Food and Drug Administration. IMAGES AND SCANNED DOCUMENTS, IF INCLUDED, ONLY VIEWABLE IN PDF VERSION OF REPORT Joey Atwood MD LAB PATHOLOGY ORDERABLES Fin al Result PATHOLOGY [facility] 3rd Floor [place], [place] [phone] from Last 3 Months Insurance [facility] [facility] Care Teams High School Teacher Relationship Specialty Start Date End Date Virgil Tracy MD [address] [facility] [address] [place] [address] PCP - General Family Medicine 12/04/23
--- OUTSIDE RECORDS SUMMARY | 2024-11-28 00:35 | XMS_ITS | Referral Summary ---
Author Organization [facility] Address [address] [place] [address] Phone Care Team Providers Care Modeler Name Role Phone Virgil Tracy MD Primary Care Provider Encounters Date Type Department Care Team Description 10/07/2024 10:00 AM CUSHION WORKER Office Visit [facility] Ophthalmology [facility] [address] [phone] Joey Atwood MD Epiphora due to insufficient drainage of left side (Primary Dx) 09/09/2024 9:00 AM CUSHION WORKER Office Visit [facility] Ophthalmology [address] [place] [phone] Joey Atwood MD Tearing, left (Primary Dx) 09/03/[address] [facility] Ophthalmology [address] [place] [phone] Joey Atwood MD 08/31/2024 12:00 PM CUSHION WORKER - 08/31/2024 1:30 PM CUSHION WORKER Surgery [facility] ([facility]) [address] [place] [address] Joey Atwood MD DACRYOCYSTORHINOSTOMY 08/31/2024 11:48 AM CUSHION WORKER Anesthesia Event [facility] ([facility]) [address] [place] [address] Cy Hsu MD Maue, Jessica Brooke, NP 08/31/2024 10:00 AM CUSHION WORKER - 08/31/2024 1:50 PM CUSHION WORKER Hospital Encounter [facility] ([facility]) [address] [place] [address] Joey Atwood MD Lesion of conjunctiva [H11.9] [...] on file Legal Sex Female 2:07 PM CUSHION WORKER Gender Identity Not on file Sexual Orientation Not on file Last Filed Vital Signs Vital Sign Reading Time Taken Comments Blood Pressure 99/71 08/31/2024 1:40 PM CUSHION WORKER Pulse 58 08/31/2024 1:40 PM CUSHION WORKER Temperature 36.2 C (97.2 F) 08/31/2024 1:05 PM CUSHION WORKER Respiratory Rate 15 08/31/2024 1:40 PM CUSHION WORKER Oxygen Saturation 96% 08/31/2024 1:40 PM CUSHION WORKER Inhaled Oxygen Concentration - - Weight 86.2 kg (190 lb) 08/31/2024 10:45 AM CUSHION WORKER Height 165.1 cm (5' 5 ) 08/31/2024 10:45 AM CUSHION WORKER Body Mass Index 31.62 08/31/2024 10:45 AM CUSHION WORKER Plan of Treatment Not on file Procedures Procedure Name Priority Date/Time Associated Diagnosis Comments SURGICAL PATHOLOGY Routine 08/31/2024 12:11 PM CUSHION WORKER Tearing, left EXCISION CONJUCTIVA 08/31/2024 11:51 AM CUSHION WORKER Tearing, left Case Notes 08/22@1026: Per via phone call, Dr. Atwood does not have clinic so he is able to start at 1200. SR DACRYOCYSTORHINOSTOMY 08/31/2024 11:51 AM CUSHION WORKER Tearing, left Case Notes 08/22@1026: Per via phone call, Dr. Atwood does not have clinic so he is able to start at 1200. SR from Last 3 Months Results * Surgical pathology (08/31/2024 12:11 PM CUSHION WORKER) Tissue specimen (specimen) (Mass/Tumor/Lesio n) 08/31/2024 12:11 PM CUSHION WORKER Narrative PATHOLOGY [facility] - 09/05/2024 7:49 PM CUSHION WORKER EPIC results best viewed via link to PDF [facility] [place] [address] Note to Patients: This report may contain [...] Gender: F : 1980 (Age: 44) Address: [address] [place] [phone] Hospital #: [id number] Taken:08/31/2024 Received:08/31/2024 Reported: 09/05/2024 Patient Type: [facility] Service: Surgery Location: Physician(s): Joey Atwood M.D. Virgil Tracy M.D. Diagnosis: Conjunctiva, left caruncle, excisional biopsy: - Intrastromal melanocytic nevus [facility]/09/05/2024 19:49 By this signature, I attest that [...] any aberrant expression in the B-cell population. [place] and lambda in situ hybridization each highlight [...] sxv/09/01/2024 10:37 PA(s): Ata Dooley MS, PA ([facility])CM By this signature, I attest that the above diagnosis is based upon my personal examination of the slides(and/or other material). Addenda/Procedures The performance characteristics of some immunohistochemical stains, fluorescence in-situ hybridization tests and immunophenotyping by flow cytometry cited in this report (if any) were determined by the Surgical Pathology and Flow Cytometry Departments at [facility] as part of an ongoing vendor quality supervisor program and in compliance with federally mandated [...] Surgical Pathology and Flow Cytometry Departments of [facility]. It has not been cleared or approved by the U. S. Food and Drug Administration. IMAGES AND SCANNED DOCUMENTS, IF INCLUDED, ONLY VIEWABLE IN PDF VERSION OF REPORT Joey Atwood MD LAB PATHOLOGY ORDERABLES Fin al Result PATHOLOGY [facility] 3rd Floor [place], [place] [phone] from Last 3 Months Insurance [facility] Care Teams Modeler Relationship Specialty Start Date End Date Virgil Tracy MD [address] [place] [address] PCP - General Family Medicine 12/04/23
--- OUTSIDE RECORDS SUMMARY | 2024-11-28 00:35 | XMS_ITS | Encounter Summary ---
Author Organization [facility] Healthcare Address [address] [place] [address] Care Team Providers Care Tacker Off Name Role Phone Virgil Tracy MD Primary Care Provider Reason for Visit * Auth/Cert (Routine) Specialty Diagnoses / Procedures Referred By Soco nunes Referred To Contact Diagnoses Epiphora due to insufficient drainage of left side Epiphora due to insufficient drainage of left side [H04.222] Procedures [place] DACRYOCSTORHINOSTOMY DACRYOCYSTORHINOSTOMY Referral ID Status Reason Start Date Expiration Date Visits Re quested Visits Authorized [id number] 1 1 Encounter Details Date Type Department Care Team (Late st Contact Info) Description 08/11/2024 Hospital Encounter [facility] Operating Room [facility] [address] [place] [address] Joey Atwood MD [address] [id number] Social History Tobacco Use Types Packs/Day Years [...] on file Legal Sex Female 2:07 PM STOCK HANDLER Gender Identity Not on file Sexual Orientation [...] side documented in this encounter Care Teams Tacker Off Relationship Specialty Start Date End Date Virgil Tracy MD [address] [address] PCP - General Family Medicine 12/04/23 documented as of this encounter
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
== END 2024-11-28 01:20 | disposition home or self-care (01) ==
PROVIDERS: Emergency Provider Physician Assistant; PCP Family Medicine
DX: S60.221A Contusion of right hand, initial encounter (principal); J45.20 Mild intermittent asthma, uncomplicated; E78.5 Hyperlipidemia, unspecified; G62.9 Polyneuropathy, unspecified; K21.9 Gastro-esophageal reflux disease without esophagitis; F41.9 Anxiety disorder, unspecified; F32.A Depression, unspecified; Z87.891 Personal history of nicotine dependence; Z86.14 Personal history of Methicillin resistant Staphylococcus aureus infection; Z90.710 Acquired absence of both cervix and uterus; Z90.49 Acquired absence of other specified parts of digestive tract; Y04.0XXA Assault by unarmed brawl or fight, initial encounter
CPT/HCPCS: 73130; 99283; A9270

== ENCOUNTER 2025-01-04 11:59 | Emergency (ER) | payer OTHER, SELFPAY ==
--- NOTE | ~2025-01-04 | CT_ITS ---
CT facial & cervical spine wo Ordering provider: Kumar Zamudio History: . trauma . Comparison: None. Technique: Thin slice axial CT of the facial bones was performed without contrast. Coronal and sagit viv reformatted images were also obtained. . Automated exposure control and iterative reconstruction technique were employed. The dose-length product was 350.68 mGy-cm. FINDINGS: PARANASAL SINUSES: Well aerated. Bilateral ethmoid, sphenoid and maxillary sinus disease. Obliteratio n of the ostiomeatal complexes. Mild right nasal septal deviation. No nasal bone fracture. ORBITS AND SUPERFICIAL SOFT TISSUES: The optic globes and orbits are normal. Right frontal scalp tk cherry otherwise, The superficial soft tissues are normal. VISUALIZED MASTOIDS: Well aerated. LIMITED VISUALIZED BRAIN PARENCHYMA: Normal. IMPRESSION: No facial fracture. Pansinusitis. CT facial & cervical spine wo Ordering provider: Kumar Zamudio History: . trauma . Comparison: None. Technique: CT of the cervical spine was performed without contrast. Sagittal and coronal reformatted images were also obtained and reviewed. Automated exposure control and iterative reconstruction leigh hnique were employed. The dose-length product was 350.68 mGy-cm. FINDINGS: VERTEBRAE: Bifid posterior arch of C1. No subluxation or acute fracture. The occipital condyles are i ntact. DISC SPACES: Normal. Narrowing of the left foramina at the level of C3-C4 PARASPINOUS SOFT TISSUES: Normal. IMPRESSION: No acute osseous abnormality cervical spine. Bifid posterior arch of C1. Reviewed, dictated and finalized at location A. IMPRESSION: No facial fracture. Pansinusitis. CT facial & cervical spine wo Ordering provider: Kumar Zamudio History: . trauma . Comparison: None. Technique: CT of the cervical spine was performed without contrast. Sagittal a nd coronal reformatted images were also obtained and reviewed. Automated expos ure control and iterative reconstruction technique were employed. The dose-sondra th product was 350.68 mGy-cm. FINDINGS: VERTEBRAE: Bifid posterior arch of C1. No subluxation or acute fracture. The oc cipital condyles are intact. DISC SPACES: Normal. Narrowing of the left foramina at the level of C3-C4 PARASPINOUS SOFT TISSUES: Normal.
--- NOTE | ~2025-01-04 | XR_ITS ---
XR foot RT min 3V Ordering provider: Kumar Zamudio MD History: . trauma/MEDIAL ARCH PAIN AND 1ST DIGIT PAIN . Comparison: None. FINDINGS: BONES: Small chip fracture at the base of the proximal phalanx of the big toe medially. Otherwise, No acute fracture or dislocation. JOINT SPACES: Normal. No tarsal coalition. SOFT TISSUES: Normal. IMPRESSION: Chip fracture at the base of the proximal phalanx of the right big toe. Reviewed, dictated and finalized at location A.
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
--- NOTE | ~2025-01-04 | XR_ITS ---
XR knee LT 3V Ordering provider: Kumar Zamudio MD History: . trauma/MEDIAL PAIN . Comparison: None. FINDINGS: BONES: No acute fracture or dislocation. JOINT SPACES: Marginal osteophytes are noted. SOFT TISSUES: Normal. IMPRESSION: No acute osseous abnormality left knee. Mild osteoarthritic changes. Reviewed, dictated and finalized at location A.
--- OUTSIDE RECORDS SUMMARY | 2025-01-04 12:00 | XMS_ITS | Encounter Summary ---
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 [address] [place] [address] Joey Atwood MD [address] [id number] Social History Tobacco Use Types Packs/Day Years [...] on file Legal Sex Female 2:07 PM TREKKING GUIDE Gender Identity Not on file Sexual Orientation Not on file documented as of this encounter Functional Status * Audit-C Score Answer Date of Assessment Author 5 08/31/2024 10:44 AM Gelnna Morrison RN * Question Answer Date of [...] side documented in this encounter Care Teams Sketch Artist Relationship Specialty Start Date End Date Virgil Tracy MD [address] [address] PCP - General Family Medicine 12/04/23 documented as of this encounter
--- OUTSIDE RECORDS SUMMARY | 2025-01-04 12:00 | XMS_ITS | Clinical Summary ---
Author Organization [facility] [address] - [address] Address [address] [place] [address] Phone Care Team Providers Care Carding Utility Tender Name Role Phone Unavailable Primary Care Provider [...] 60 mL 280 mL 07/31/2022 2:20 PM CIGAR PACKER AND SORTER 07/30/2022 Active famotidine (PEPCID) 20 mg tablet Take 1 Tablet (20 mg) by mouth 2 times daily. 60 Tablet 2 07/31/2022 2:20 PM CIGAR PACKER AND SORTER 07/30/2022 Active ondansetron (Zofran) 4 mg Tablet Take 1 Tablet (4 mg) by mouth every 8 hours as needed for Nausea or Nausea/Vomi ting. 50 Tablet 07/31/2022 2:20 PM CIGAR PACKER AND SORTER 07/30/2022 Active Active Problems No known active [...] on file Legal Sex Female 2:51 AM CIGAR PACKER AND SORTER Gender Identity Not on file Sexual Orientation Not on file Last Filed Vital Signs Vital Sign Reading Time Taken Comments Blood Pressure 152/78 07/31/2022 12:44 PM CIGAR PACKER AND SORTER Pulse 69 07/31/2022 12:44 PM CIGAR PACKER AND SORTER Temperature 36.4 C (97.6 F) 07/31/2022 12:44 PM CIGAR PACKER AND SORTER Respiratory Rate 18 07/31/2022 4:29 AM CIGAR PACKER AND SORTER Oxygen Saturation 97% 07/31/2022 12:44 PM CIGAR PACKER AND SORTER Inhaled Oxygen Concentration - - Weight 153.3 kg (338 lb) 07/30/2022 6:35 AM CIGAR PACKER AND SORTER Height 165.1 cm (5' 5) 07/30/2022 6:35 AM CIGAR PACKER AND SORTER Body Mass Index 56.25 07/30/2022 6:35 AM CIGAR PACKER AND SORTER Plan of Treatment Health Maintenance Due Date [...] this topic Medical Devices Implanted Type Area Corduroy Cutter Operator Device Identifier Shelf Expiration Date Model / Serial / Lot Seamguard Endogia 60 Blk [id number] - [id number] Implanted:Qt y: 1 on 07/30/2022 by Antione Parisi MD at [facility] N/A: Stomach [employer] [id number] 01/20/2025 12BSGTRI 60B / / [id number] Seamguard Endogia 60 Blk [id number] - [id number] Implanted:Qt y: 1 on 07/30/2022 by Antione Parisi MD at [facility] N/A: Stomach [employer] [id number] 03/13/2025 12BSGTRI 60B / / [id number] Seamguard Endogia 60 Prpl [id number] - [id number] Implanted:Qt y: 1 on 07/30/2022 by Antione Parisi MD at [facility] N/A: Stomach [employer] [id number] 04/07/2025 12BSGTRI 60P / / [id number] Seamguard Endogia 60 Prpl [id number] - [id number] Implanted:Qt y: 1 on 07/30/2022 by Antione Parisi MD at [facility] N/A: Stomach [employer] [id number] 02/18/2025 12BSGTRI 60P / / [id number] Seamguard Endogia 60 Prpl [id number] - [id number] Implanted:Qt y: 1 on 07/30/2022 by Antione Parisi MD at [facility] N/A: Stomach [employer] [id number] 02/18/2025 12BSGTRI 60P / / [id number] Insurance [facility] [id number] MEDICAID [place] RX EXPRESS SCRIPTS Express RX ROLDAN PLANS (INTERNAL) [facility] Internal Plans Advance Directives For more information, please contact: [phone] * Full Code (Latest Code Status on File) Date Activated Date Inactivated Comments 07/30/2022 8:41 PM 07/31/2022 4:30 PM * Full Code Date Activated Date Inactivated Comments 07/30/2022 6:26 AM 07/30/2022 8:41 PM * Full Code Date Activated Date Inactivated Comments 07/20/2022 8:25 AM 07/20/2022 11:33 AM
--- OUTSIDE RECORDS SUMMARY | 2025-01-04 12:00 | XMS_ITS | Referral Summary ---
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 (Primary Dx) from Last 3 Months Allergies Active Allergy [...] Smoking Tobacco: Former Cigarettes 1 15 1 999 - 2013 Vaping Started: 2013 Smokeless Tobacco: [...] on file Legal Sex Female 2:07 PM DAIRY MACHINE OPERATOR FARMWORKER Gender Identity Not on file Sexual Orientation Not on file Last Filed Vital Signs Vital Sign Reading Time Taken Comments Blood Pressure 99/71 08/31/2024 1:40 PM DAIRY MACHINE OPERATOR FARMWORKER Pulse 58 08/31/2024 1:40 PM DAIRY MACHINE OPERATOR FARMWORKER Temperature 36.2 C (97.2 F) 08/31/2024 1:05 PM DAIRY MACHINE OPERATOR FARMWORKER Respiratory Rate 15 08/31/2024 1:40 PM DAIRY MACHINE OPERATOR FARMWORKER Oxygen Saturation 96% 08/31/2024 1:40 PM DAIRY MACHINE OPERATOR FARMWORKER Inhaled Oxygen Concentration - - Weight 86.2 kg (190 lb) 08/31/2024 10:45 AM DAIRY MACHINE OPERATOR FARMWORKER Height 165.1 cm (5' 5) 08/31/2024 10:45 AM DAIRY MACHINE OPERATOR FARMWORKER Body Mass Index 31.62 08/31/2024 10:45 AM DAIRY MACHINE OPERATOR FARMWORKER Plan of Treatment Not on file Insurance [id number] [employer] [place] [address] [facility] [id number] [employer] [place] [address] [facility] Care Teams Online Content Coordinator Relationship Specialty Start Date End Date Virgil Tracy MD [address] [facility] [address] [place] [address] PCP - General Family Medicine 12/04/23
--- OUTSIDE RECORDS SUMMARY | 2025-01-04 12:00 | XMS_ITS | Clinical Summary ---
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 (Primary Dx) from Last 3 Months Surgical History Surgery [...] on file Legal Sex Female 2:07 PM CONDENSER CLEANER Gender Identity Not on file Sexual Orientation Not on file Obstetrics History Last Filed Vital Signs Vital Sign Reading Time Taken Comments Blood Pressure 99/71 08/31/2024 1:40 PM CONDENSER CLEANER Pulse 58 08/31/2024 1:40 PM CONDENSER CLEANER Temperature 36.2 C (97.2 F) 08/31/2024 1:05 PM CONDENSER CLEANER Respiratory Rate 15 08/31/2024 1:40 PM CONDENSER CLEANER Oxygen Saturation 96% 08/31/2024 1:40 PM CONDENSER CLEANER Inhaled Oxygen Concentration - - Weight 86.2 kg (190 lb) 08/31/2024 10:45 AM CONDENSER CLEANER Height 165.1 cm (5' 5) 08/31/2024 10:45 AM CONDENSER CLEANER Body Mass Index 31.62 08/31/2024 10:45 AM CONDENSER CLEANER Plan of Treatment Health Maintenance Due Date [...] on patient's age to complete this topic [facility] Care Teams Distribution System Operator Relationship Specialty Start Date End Date Virgil Tracy MD [address] [place] [address] PCP - General Family Medicine 12/04/23
--- OUTSIDE RECORDS SUMMARY | 2025-01-04 12:00 | XMS_ITS | Continuity of Care Document ---
Author Organization [facility] Address [address] [place] [address] Phone Care Team Providers Care Stone Setter Name Role Phone Unavailable Unavailable Unavailable Advance Directives Directive Yes / No Effective Date File Name No Information Encounters Encounter Description Practice Location Reason(s) For Visit Diagnoses Date Provider Providers Copied on Encounter [facility], [address], [place], [place], [id number], tel:[phone] [facility] No Information No Information Referring Provider: CARLEE Hollis, [address], [place], [address]. tel:[phone] Family History Family Member Type Diagnosis Age At Onset No Information Payers Payer name Insurance type Covered democrat ID Authoriza tinick(s) [facility] IN[facility]MN[facility] [id number] Social History Type Description Quantity Date Captured Comments Sex Female Smoking Status No Information Chief Complaint And Reason For Visit No Information History Of Present Illness Encounter Date Complaint History Of Prese nt Illness No Information Instructions Date Instruction Additional Infor mation No Information Assessments Type Assessment Date No Information
[2025-01-04 12:11] VITALS: BP 118/77; PULSE 87; RESP 18; TEMP 37.1; O2SAT 99
--- OUTSIDE RECORDS SUMMARY | 2025-01-04 13:40 | XMS_ITS | Continuity of Care Document ---
Author Organization [facility] Address [address] [place] [address] Phone Care Team Providers Care Substitute Nurse Name Role Phone Unavailable Unavailable Unavailable Advance Directives Directive Yes / No Effective Date File Name No Information Encounters Encounter Description Practice Location Reason(s) For Visit Diagnoses Date Provider Providers Copied on Encounter [facility], [address] [facility], [place], [place], [id number], tel:[phone] [facility] No Information No Information Referring Provider: CARLEE Hollis, [address], [place], [address]. tel:[phone] Family History Family Member Type Diagnosis Age At Onset No Information Payers Payer name Insurance type Covered libertarian ID Authoriza tinick(s) [facility] INDEMNITY [id number] Social History Type Description Quantity Date Captured Comments Sex Female Smoking Status No Information Chief Complaint And Reason For Visit No Information History Of Present Illness Encounter Date Complaint History Of Prese nt Illness No Information Instructions Date Instruction Additional Infor mation No Information Assessments Type Assessment Date No Information
--- OUTSIDE RECORDS SUMMARY | 2025-01-04 13:40 | XMS_ITS | Clinical Summary ---
Author Organization [facility] [address] - [address] Address [address] [place] [address] Phone Care Team Providers Care Radiologic Technology Instructor Name Role Phone Unavailable Primary Care Provider [...] 60 mL 280 mL 07/31/2022 2:20 PM SOFA INSPECTOR 07/30/2022 Active famotidine (PEPCID) 20 mg tablet Take 1 Tablet (20 mg) by mouth 2 times daily. 60 Tablet 2 07/31/2022 2:20 PM SOFA INSPECTOR 07/30/2022 Active ondansetron (Zofran) 4 mg Tablet Take 1 Tablet (4 mg) by mouth every 8 hours as needed for Nausea or Nausea/Vomi ting. 50 Tablet 07/31/2022 2:20 PM SOFA INSPECTOR 07/30/2022 Active Active Problems No known active [...] on file Legal Sex Female 2:51 AM SOFA INSPECTOR Gender Identity Not on file Sexual Orientation Not on file Last Filed Vital Signs Vital Sign Reading Time Taken Comments Blood Pressure 152/78 07/31/2022 12:44 PM SOFA INSPECTOR Pulse 69 07/31/2022 12:44 PM SOFA INSPECTOR Temperature 36.4 C (97.6 F) 07/31/2022 12:44 PM SOFA INSPECTOR Respiratory Rate 18 07/31/2022 4:29 AM SOFA INSPECTOR Oxygen Saturation 97% 07/31/2022 12:44 PM SOFA INSPECTOR Inhaled Oxygen Concentration - - Weight 153.3 kg (338 lb) 07/30/2022 6:35 AM SOFA INSPECTOR Height 165.1 cm (5' 5) 07/30/2022 6:35 AM SOFA INSPECTOR Body Mass Index 56.25 07/30/2022 6:35 AM SOFA INSPECTOR Plan of Treatment Health Maintenance Due Date [...] this topic Medical Devices Implanted Type Area Principal Administrative Clerk Device Identifier Shelf Expiration Date Model / Serial / Lot Seamguard Endogia 60 Blk [id number] - [id number] Implanted:Qt y: 1 on 07/30/2022 by Antione Parisi MD at [facility] N/A: Stomach [employer] [id number] 01/20/2025 12BSGTRI 60B / / [id number] Seamguard Endogia 60 Blk [id number] - [id number] Implanted:Qt y: 1 on 07/30/2022 by Antione Parisi MD at [facility] N/A: Stomach [employer] [id number] 03/13/2025 12BSGTRI 60B / / [id number] Seamguard Endogia 60 Prpl [id number] - [id number] Implanted:Qt y: 1 on 07/30/2022 by Antione Parisi MD at [facility] N/A: Stomach [employer] [id number] 04/07/2025 12BSGTRI 60P / / [id number] Seamguard Endogia 60 Prpl [id number] - [id number] Implanted:Qt y: 1 on 07/30/2022 by Antione Parisi MD at [facility] N/A: Stomach [employer] [id number] 02/18/2025 12BSGTRI 60P / / [id number] Seamguard Endogia 60 Prpl [id number] - [id number] Implanted:Qt y: 1 on 07/30/2022 by Antione Parisi MD at [facility] N/A: Stomach [employer] [id number] 02/18/2025 12BSGTRI 60P / / [id number] Insurance [facility] [id number] MEDICAID [place] RX EXPRESS SCRIPTS Express RX ROLDAN PLANS (INTERNAL) [facility] Internal [facility] Advance Directives For more information, please contact: [phone] * Full Code (Latest Code Status on File) Date Activated Date Inactivated Comments 07/30/2022 8:41 PM 07/31/2022 4:30 PM * Full Code Date Activated Date Inactivated Comments 07/30/2022 6:26 AM 07/30/2022 8:41 PM * Full Code Date Activated Date Inactivated Comments 07/20/2022 8:25 AM 07/20/2022 11:33 AM
--- OUTSIDE RECORDS SUMMARY | 2025-01-04 13:40 | XMS_ITS | Clinical Summary ---
Author Organization [facility] Address [address] [place] [address] Phone Care Team Providers Care Patient Services Clerk Name Role Phone Virgil Tracy MD Primary [...] Department Care Team Description 10/07/2024 10:00 AM HOSPICE SUPERINTENDENT Office Visit [facility] Ophthalmology [address] [facility] 6th [place] [address] Shackelford, Joey Donis MD Epiphora due to insufficient [...] on file Legal Sex Female 2:07 PM HOSPICE SUPERINTENDENT Gender Identity Not on file Sexual Orientation Not on file Obstetrics History Last Filed Vital Signs Vital Sign Reading Time Taken Comments Blood Pressure 99/71 08/31/2024 1:40 PM HOSPICE SUPERINTENDENT Pulse 58 08/31/2024 1:40 PM HOSPICE SUPERINTENDENT Temperature 36.2 C (97.2 F) 08/31/2024 1:05 PM HOSPICE SUPERINTENDENT Respiratory Rate 15 08/31/2024 1:40 PM HOSPICE SUPERINTENDENT Oxygen Saturation 96% 08/31/2024 1:40 PM HOSPICE SUPERINTENDENT Inhaled Oxygen Concentration - - Weight 86.2 kg (190 lb) 08/31/2024 10:45 AM HOSPICE SUPERINTENDENT Height 165.1 cm (5' 5) 08/31/2024 10:45 AM HOSPICE SUPERINTENDENT Body Mass Index 31.62 08/31/2024 10:45 AM HOSPICE SUPERINTENDENT Plan of Treatment Health Maintenance Due Date [...] patient's age to complete [facility] topic [facility] Care Teams Patient Services Clerk Relationship Specialty Start Date End Date Virgil Tracy MD [address] [place] [address] PCP - General Family Medicine 12/04/23
--- OUTSIDE RECORDS SUMMARY | 2025-01-04 13:40 | XMS_ITS | Referral Summary ---
Author Organization [facility] Address [address] [place] [address] Phone Care Team Providers Care Boat Joiner Helper Name Role Phone Virgil Tracy MD Primary Care Provider Encounters Date Type Department Care Team Description 10/07/2024 10:00 AM PLANT PROTECTION OFFICER Office Visit [facility] Ophthalmology [address] [facility] 6th [place] [id number] Joey Atwood MD Epiphora due to insufficient [...] on file Legal Sex Female 2:07 PM PLANT PROTECTION OFFICER Gender Identity Not on file Sexual Orientation Not on file Last Filed Vital Signs Vital Sign Reading Time Taken Comments Blood Pressure 99/71 08/31/2024 1:40 PM PLANT PROTECTION OFFICER Pulse 58 08/31/2024 1:40 PM PLANT PROTECTION OFFICER Temperature 36.2 C (97.2 F) 08/31/2024 1:05 PM PLANT PROTECTION OFFICER Respiratory Rate 15 08/31/2024 1:40 PM PLANT PROTECTION OFFICER Oxygen Saturation 96% 08/31/2024 1:40 PM PLANT PROTECTION OFFICER Inhaled Oxygen Concentration - - Weight 86.2 kg (190 lb) 08/31/2024 10:45 AM PLANT PROTECTION OFFICER Height 165.1 cm (5' 5) 08/31/2024 10:45 AM PLANT PROTECTION OFFICER Body Mass Index 31.62 08/31/2024 10:45 AM PLANT PROTECTION OFFICER Plan of Treatment Not on file Insurance [facility] Care Teams Boat Joiner Helper Relationship Specialty Start Date End Date Virgil Tracy MD [address] [facility] [address] [place] [address] PCP - General Family Medicine 12/04/23
--- OUTSIDE RECORDS SUMMARY | 2025-01-04 13:40 | XMS_ITS | Encounter Summary ---
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 [H04.222] Procedures DE DACRYOCSTORHINOSTOMY DACRYOCYSTORHINOSTOMY Referral ID Status Reason Start Date Expiration Date Visits Re quested Visits Authorized [id number] 1 1 Encounter Details Date Type Department Care Team (Late st Contact Info) Description 08/11/2024 Hospital Encounter [facility] [address] [place] [address] Joey Atwood MD [address] [id number] Social History Tobacco Use Types Packs/Day Years [...] on file Legal Sex Female 2:07 PM ELECTRICAL ENGINEERING TECHNOLOGIST Gender Identity Not on file Sexual Orientation [...] side documented in this encounter Care Teams Blanket Weaver Relationship Specialty Start Date End Date Virgil Tracy MD [address] [address] PCP - General Family Medicine 12/04/23 documented as of this encounter
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
[2025-01-04] MEDS: CYCLOBENZAPRINE HCL 10 MG TABLET PO (14:00)
[2025-01-04] MEDS: TETANUS,DIPHTHERIA,AC PERTUSSIS ADULT (0.5 ML) BOOSTRIX IM (14:01)
[2025-01-04] MEDS: HYDROcodone/acetaminophen (*CRX) 5-325 MG TABLET 1 TAB PO (14:01)
[2025-01-04 14:07] VITALS: BP 131/86; PULSE 83; RESP 20; O2SAT 100
[2025-01-04 16:15] VITALS: BP 118/63; PULSE 76; RESP 18; O2SAT 100
== END 2025-01-04 17:24 | disposition home or self-care (01) ==
PROVIDERS: Emergency Provider Emergency Medicine; PCP Family Medicine
DX: S02.5XXA Fracture of tooth (traumatic), initial encounter for closed fracture (principal); S92.411A Displaced fracture of proximal phalanx of right great toe, initial encounter for closed fracture; S00.81XA Abrasion of other part of head, initial encounter; S00.31XA Abrasion of nose, initial encounter; S89.92XA Unspecified injury of left lower leg, initial encounter; Z23 Encounter for immunization; J45.20 Mild intermittent asthma, uncomplicated; E78.5 Hyperlipidemia, unspecified; G62.9 Polyneuropathy, unspecified; K21.9 Gastro-esophageal reflux disease without esophagitis; F32.A Depression, unspecified; F41.9 Anxiety disorder, unspecified; Z86.14 Personal history of Methicillin resistant Staphylococcus aureus infection; Z87.891 Personal history of nicotine dependence; Z90.710 Acquired absence of both cervix and uterus; J32.4 Chronic pansinusitis; Z79.899 Other long term (current) drug therapy; V86.69XA Passenger of other special all-terrain or other off-road motor vehicle injured in nontraffic accident, initial encounter
CPT/HCPCS: 70450; 70486; 72125; 73562; 73630; 90471; 90715; 99284; A9270

== ENCOUNTER 2025-06-28 13:05 | Emergency (ER) | payer OTHER, SELFPAY ==
--- NOTE | ~2025-06-28 | CT_ITS ---
EXAMINATION: CT cervical spine wo con DATE: 06/28/2025 13:57 INDICATION: Neck pain post fall with head injury TECHNIQUE: Computed tomography (CT) of the cervical spine was performed without intravenous contrast. Automated exposure control and iterative reconstruction technique were employed. The dose-length product was 198.33 mGy-cm. COMPARISON: None FINDINGS: 15 degree cervical dextrocurvature. Straightening of the normal cervical lordosis. Vertebral body heights are normal. No fracture. Cervical disc spaces are normal. Mild disc height loss at T3-T4. No central canal stenosis. There is multilevel minimal to mild cervical facet and uncovertebral osteoarthritis. Severe facet osteoarthritis on the left at T3-T4 and mild to moderate osteoarthritis at C7-T1 and the remaining upper thoracic levels. Mild stenosis of the partially visualized left T3-T4 neural foramen with minimal foraminal stenosis at a few additional cervical and upper thoracic neural foramina. Visualized apices of the lungs are clear. Cervical soft tissues are unremarkable. IMPRESSION: 1. 15 degrees cervical dextrocurvature with minimal spondylosis. No acute osseous abnormality. Reviewed, dictated and finalized at location A. NESS ATTORNEY IMPRESSION: 1. 15 degrees cervical dextrocurvature with minimal spondylosis. No acute osseo us abnormality.
--- NOTE | ~2025-06-28 | CT_ITS ---
EXAMINATION: CT lumbar spine wo con COMPARISON: None HISTORY: fall 06/25, pain TECHNIQUE: Axial images were obtained through the spine without IV contrast. Coronal, sagittal reconstruction images were obtained from the axial views. CT scan performed using dose optimization techniques including the following automated exposure control; adjustment of mA and/or kV; use of iterative reconstruction technique. Automatic exposure control was used to reduce radiation dose. Permanent radiation dose record is archived to PACS. FINDINGS: The vertebral heights are intact. No fracture or subluxation. The disc heights are intact. The soft tissues demonstrate bilateral renal calculi otherwise unremarkable. Impression: No acute abnormality. Reviewed, dictated and finalized at location P. PMENT STERILIZER Impression: No acute abnormality.
--- NOTE | ~2025-06-28 | CT_ITS ---
EXAMINATION: CT brain wo con DATE: 06/28/2025 13:57 INDICATION: Head injury post fall 3 days prior TECHNIQUE: Computed tomography (CT) of the head was performed without intravenous contrast. Sagittal and coronal reconstructions were performed. The mA was adjusted according to patient size. Iterative reconstruction technique was employed. The dose-length product was 605.33 mGy-cm. COMPARISON: head CT dated 01/04/2025, 09/28/2020 and 12/31/2016 FINDINGS: No fracture. No acute intracranial hemorrhage, acute infarction or abnormal extra axial fluid collection. Ventricles are normal and symmetric. No mass/mass effect. Prominent mucosal thickening in the bilateral ethmoid and maxillary sinuses with mucous retention cyst in the right maxillary sinus. The orbits and mastoid air cells are normal. IMPRESSION: 1. No fracture or acute intracranial process. 2. Chronic sinus disease. Reviewed, dictated and finalized at location A. RETAILER
[2025-06-28 13:18] VITALS: BP 129/85; PULSE 66; RESP 16; TEMP 36.8; O2SAT 100
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
--- NOTE | 2025-06-28 15:15 | PC.NURSE ---
Pt to intake desk asking if she could have any kind of pain medication, RN informed EDP of patient request
[2025-06-28 15:19] VITALS: BP 121/78; PULSE 69; RESP 16; TEMP 36.6; O2SAT 100
--- NOTE | 2025-06-28 16:59 | PC.NURSE ---
Pt requesting pain medication, RN informed her that ED provider was made aware and that there were no new orders placed on the chart and no new orders received. ED provider made aware of pt request for pain medications
[2025-06-28 17:08] VITALS: BP 121/78; PULSE 59; RESP 16; O2SAT 100
== END 2025-06-28 18:00 | disposition home or self-care (01) ==
PROVIDERS: Emergency Provider Physician Assistant; PCP Family Medicine
DX: S06.0X0A Concussion without loss of consciousness, initial encounter (principal); E78.5 Hyperlipidemia, unspecified; J45.20 Mild intermittent asthma, uncomplicated; K21.9 Gastro-esophageal reflux disease without esophagitis; G62.9 Polyneuropathy, unspecified; F41.9 Anxiety disorder, unspecified; Z87.891 Personal history of nicotine dependence; Z86.14 Personal history of Methicillin resistant Staphylococcus aureus infection; Z90.710 Acquired absence of both cervix and uterus; Z90.49 Acquired absence of other specified parts of digestive tract; J32.9 Chronic sinusitis, unspecified; Z79.899 Other long term (current) drug therapy; W04.XXXA Fall while being carried or supported by other persons, initial encounter
CPT/HCPCS: 70450; 72125; 72131; 99284

== ENCOUNTER 2025-07-02 08:02 | Emergency (ER) | payer BC, OTHER, SELFPAY ==
--- OUTSIDE RECORDS SUMMARY | 2025-07-02 08:04 | XMS_ITS | Clinical Summary ---
Author Organization [address] - [address] [employer] [address] [place] [address] Phone Care Team Providers Care Cardiovascular Technician Name Role Phone Unavailable Primary Care Provider [...] 60 mL 280 mL 07/31/2022 2:20 PM CIGARETTE VENDOR 07/30/2022 Active famotidine (PEPCID) 20 mg tablet Take 1 Tablet (20 mg) by mouth 2 times daily. 60 Tablet 2 07/31/2022 2:20 PM CIGARETTE VENDOR 07/30/2022 Active ondansetron (Zofran) 4 mg Tablet Take 1 Tablet (4 mg) by mouth every 8 hours as needed for Nausea or Nausea/Vomi ting. 50 Tablet 07/31/2022 2:20 PM CIGARETTE VENDOR 07/30/2022 Active Active Problems No known active problems Social History Tobacco Use Types Packs/Day Years Used Date Smoking Tobacco: Former Cigarettes 0 Q uit: 2013 Smokeless Tobacco: Never Tobacco Cessation:Counseling Given: Not Answered Alcohol Use Standard Drinks/Week Comments Yes 0 (1 standard drink = 0.6 oz pur e alcohol) occasionally Comments No Sex and Gender Information Value Date Recorded Sex Assigned at Not on file Legal Sex Female 2:51 AM CIGARETTE VENDOR Gender Identity Not on file Sexual Orientation Not on file Last Filed Vital Signs Vital Sign Reading Time Taken Comments Blood Pressure 152/78 07/31/2022 12:44 PM CIGARETTE VENDOR Pulse 69 07/31/2022 12:44 PM CIGARETTE VENDOR Temperature 36.4 C (97.6 F) 07/31/2022 12:44 PM CIGARETTE VENDOR Respiratory Rate 18 07/31/2022 4:29 AM CIGARETTE VENDOR Oxygen Saturation 97% 07/31/2022 12:44 PM CIGARETTE VENDOR Inhaled Oxygen Concentration - - Weight 153.3 kg (338 lb) 07/30/2022 6:35 AM CIGARETTE VENDOR Height 165.1 cm (5' 5) 07/30/2022 6:35 AM CIGARETTE VENDOR Body Mass Index 56.25 07/30/2022 6:35 AM CIGARETTE VENDOR Plan of Treatment Health Maintenance Due Date Last Done Comments DTAP/TDAP/TD VACCINES (1 - Tdap) 2001 HEPATITIS B VACCINES (1 of 3 - 19+ 3-dose series) 07/13 HPV/Cotest (21-29) 2003 HPV VACCINES (1 - 3-dose SCDM series) 2009 CERVICAL CANCER SCREENING 2012 HPV/Cotest (30-65) 2012 PAP SMEAR 2012 BREAST CANCER SCREENING 2022 INFLUENZA VACCINE (#1) 2025 Medical Devices Implanted Type Area Bakeshop Cleaner Device Identifier Shelf Expiration Date Model / Serial / Lot Seamguard Endogia 60 Blk [id number] - [id number] Implanted:Qt y: 1 on 07/30/2022 by Antione Parisi MD at [facility] N/A: Stomach [employer] [id number] 01/20/2025 12BSGTRI 60B / / [id number] Seamguard Endogia 60 Blk [id number] - [id number] Implanted:Qt y: 1 on 07/30/2022 by Antione Parisi MD at [facility] N/A: Stomach [employer] [id number] 03/13/2025 12BSGTRI 60B / / [id number] Seamguard Endogia 60 Prpl [id number] - [id number] Implanted:Qt y: 1 on 07/30/2022 by Antione Parisi MD at [facility] N/A: Stomach [employer] [id number] 04/07/2025 12BSGTRI 60P / / [id number] Seamguard Endogia 60 Prpl [id number] - [id number] Implanted:Qt y: 1 on 07/30/2022 by Antione Parisi MD at [facility] N/A: Stomach [employer] [id number] 02/18/2025 12BSGTRI 60P / / [id number] Seamguard Endogia 60 Prpl [id number] - [id number] Implanted:Qt y: 1 on 07/30/2022 by Antione Parisi MD at [facility] N/A: Stomach [employer] [id number] 02/18/2025 12BSGTRI 60P / / [id number] Insurance [facility] [id number] MEDICAID [place] RX [employer] Express RX [employer] (INTERNAL) [facility] Internal Plans Advance Directives For more information, please contact: [phone] * Full Code (Latest Code Status on File) Date Activated Date Inactivated Comments 07/30/2022 8:41 PM 07/31/2022 4:30 PM * Full Code Date Activated Date Inactivated Comments 07/30/2022 6:26 AM 07/30/2022 8:41 PM * Full Code Date Activated Date Inactivated Comments 07/20/2022 8:25 AM 07/20/2022 11:33 AM
--- OUTSIDE RECORDS SUMMARY | 2025-07-02 08:04 | XMS_ITS | Encounter Summary ---
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 [H04.222] Procedures ID DACRYOCSTORHINOSTOMY DACRYOCYSTORHINOSTOMY Referral ID Status Reason Start Date Expiration Date Visits Re quested Visits Authorized [id number] 1 1 Encounter Details Date Type Department Care Team (Late st Contact Info) Description 08/11/2024 Hospital Encounter [facility] Operating [facility] [address] [place] [address] Joey Atwood MD [address] [id number] Social History Tobacco Use Types Packs/Day Years [...] on file Legal Sex Female 2:07 PM TECHNICAL DOCUMENTATION SPECIALIST Gender Identity Not on file Sexual Orientation Not on file documented as of this encounter Functional Status * Difference in Last Two Dorian Scores Answer Date of Assessment Author -23 08/31/2024 1:05 PM Seymour Mancia RN * Question Answer Date of Assessment Author BP Location Left arm 08/31/2024 11:00 AM Glenna Lowe RN BP Method Automatic 08/31/2024 11:00 AM Glenna Lowe RN MAP (mmHg) 82 08/31/2024 1:30 PM Jenn Gonzales RN * Adia Fall Risk Question Answer Date of Assessment Author History of Falling 0 08/31/2024 1:08 PM Jenn Mancia RN Secondary Diagnosis 15 08/31/2024 1:08 PM CS Jenn Sams RN Ambulatory Aids 0 08/31/2024 1:08 PM Jenn Quinonez RN Intravenous Therapy/Heparin/Saline Lock 20 08/31/2024 1:08 PM Seymour Mancia RN Gait/Transferring 0 08/31/2024 1:08 PM Jenn Mancia RN Mental Status 0 08/31/2024 1:08 PM Jenn Pizano RN Morse Fall Risk Score (Score >= 45 places fall precaution order) 35 08/31/2024 1:08 PM Jenn Mancia RN Prior Fall Event (Autopopulated from EMR) None found 08/31/2024 1:08 PM Romeo Mancia RN * Dorian Scale Question Answer Date of Assessment Author Sensory Perceptions 4 08/31/2024 1:05 PM CS Jenn Sams RN Moisture 4 08/31/2024 1:05 PM Jenn Gonzales RN Activity 4 08/31/2024 1:05 PM Jenn Gonzales RN Mobility 4 08/31/2024 1:05 PM Jenn Gonzales RN Nutrition 4 08/31/2024 1:05 PM Jenn Gonzales RN Friction and Shear 3 08/31/2024 1:05 PM Jenn Mancia RN Dorian Scale Score 23 08/31/2024 1:05 PM Jenn Mancia RN * Fall Risk Interventions Question Answer Date of Assessment Author All Low Fall Interventions Applied Yes 08/31/2024 1:08 PM Jenn Mancia RN All Moderate Fall Interventions Applied No 08/31/2024 1:08 PM Jenn Mancia RN All Moderate Fall Risk Interventions EXCEPT: Fall risk sign with education;Gait belt at bedside;Comfort rounds;PT eval requested or obtained;OT eval requested or obtained 08/31/2024 1:08 PM Jenn Mancia RN Reason For Exception(s) periop 08/31/19 1:08 PM Jenn Mancia RN * Pressure Injury Prevention Question Answer Date of Assessment Author Pressure Ulcer Prevention Interventions Keep skin clean and dry (Sensory Perception/Moistur e) 08/31/2024 1:05 PM Jenn Mancia RN * AUDIT-C Score Answer Date of Assessment Author 5 08/31/2024 10:44 AM Glenna Morrison RN * Alcohol Use Question Answer Date of Assessment Author Q1: [...] Monthly 08/31/2024 10:44 AM Glenna Mckenna RN * Integumentary Question Answer Date of Assessment Author Integumentary (WDL) WDL 08/31/2024 1:30 PM Jenn Amador RN * Dorian Scale Question Answer Date of Assessment Author Dorian Scale Used Dorian 08/31/2024 1:05 PM Jenn Mancia RN * Question Answer Date of Assessment Author BP Location Left arm 08/31/2024 11:00 AM Glenna Lowe RN BP Method Automatic 08/31/2024 11:00 AM Glenna Lowe RN * Fall Risk Interventions Question Answer Date of Assessment Author All Low Fall Interventions Applied Yes 08/31/2024 1:08 PM Jenn Mancia RN All Moderate Fall Interventions Applied No 08/31/2024 1:08 PM Jenn Mancia RN All Moderate Fall Risk Interventions EXCEPT: Fall risk sign with education;Gait belt at bedside;Comfort rounds;PT eval requested or obtained;OT eval requested or obtained 08/31/2024 1:08 PM Jenn Mancia RN Reason For Exception(s) periop 08/31/19 1:08 PM Jenn Mancia RN * ADL Screening Question Answer Date of Assessment Author Hearing - Right Ear Functional 08/20/2024 12:16 PM Avani Treadwell RN Hearing - Left Ear Functional 08/20/2024 12:16 PM Avani Rodríguez RN * Assistive Devices Question Answer Date of Assessment Author Assistive Devices/DME None 08/20/2024 12:16 PM Avani Vickers RN documented as of this encounter Mental Status * Question Answer Entry Date Author Neuro (WDL) WDL 08/31/2024 1:30 PM Jenn Gonzales RN documented in this encounter Plan of Treatment Not on file documented as of this encounter Visit Diagnoses Diagnosis 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
--- OUTSIDE RECORDS SUMMARY | 2025-07-02 08:04 | XMS_ITS | Clinical Summary ---
Author Organization [facility] Address [address] [place] [address] Phone Care Team Providers Care Cable Maker Name Role Phone Virgil Tracy MD [...] insufficient drainage of left si de 08/03/2024 Surgical History Surgery Date Site/Laterality Comments HYSTERECTOMY [...] on file Legal Sex Female 2:07 PM MAGNETIC RESONANCE TECHNOLOGIST Gender Identity Not on file Sexual Orientation Not on file Last Filed Vital Signs Vital Sign Reading Time Taken Comments Blood Pressure 99/71 08/31/2024 1:40 PM MAGNETIC RESONANCE TECHNOLOGIST Pulse 58 08/31/2024 1:40 PM MAGNETIC RESONANCE TECHNOLOGIST Temperature 36.2 C (97.2 F) 08/31/2024 1:05 PM MAGNETIC RESONANCE TECHNOLOGIST Respiratory Rate 15 08/31/2024 1:40 PM MAGNETIC RESONANCE TECHNOLOGIST Oxygen Saturation 96% 08/31/2024 1:40 PM MAGNETIC RESONANCE TECHNOLOGIST Inhaled Oxygen Concentration - - Weight 86.2 kg (190 lb) 08/31/2024 10:45 AM MAGNETIC RESONANCE TECHNOLOGIST Height 165.1 cm (5' 5) 08/31/2024 10:45 AM MAGNETIC RESONANCE TECHNOLOGIST Body Mass Index 31.62 08/31/2024 10:45 AM MAGNETIC RESONANCE TECHNOLOGIST Plan of Treatment Health Maintenance Due Date Last Done Comments Breast Cancer Screening-Mammogram 1982 Depression Screening 1982 Hepatitis C Screening 1982 DTaP/Tdap/Td Vaccine (1 - Tdap) 1993 Varicella Vaccines (1 of 2 - 13+ 2-dose series) 1995 Hepatitis B Screening 2000 Regular Well Visit/Exam 18-64 2000 HPV Vaccines (1 - 3-dose SCD M series) 2009 Covid-19 Vaccine (2 - 2024-2 6 season) 2025 10/20/2020 Influenza Vaccine (#1) 2025 05/26/2017 Pneumococcal vaccine <65 Aged Out No longer eligible based on patient's age to complete this topic Insurance [facility] Care Teams Cable Maker Relationship Specialty Start Date End Date Virgil Tracy MD [address] [facility] [address] [place] [address] PCP - General Family Medicine 12/04/23
--- NOTE | 2025-07-02 08:12 | ED_ITS ---
HPI - URI/Sore Throat General Chief Complaint: Upper Respiratory Infection Stated Complaint: Throat/stuffy nose/cough Time Seen by Provider: 07/02/25 08:28 Source: patient and RN notes reviewed Mode of arrival: ambulatory Limitations: no limitations History of Present Illness HPI Narrative: 44-year-old female presents with concern for 2 day history of nasal congestion, sore throat, body aches, chills and fever. She reports she has been having a cough as well. She reports she was at a wedding and then began having symptoms. She has been taking Robitussin Claritin without relief. Reports painful swallowing MD elicited complaint: cough and sore throat Related Data Allergies Allergy/AdvReac Type Severity Reaction Status Date / Time Penicillins Allergy Severe HIVES Verified 07/02/25 08:24 amoxicillin Allergy Intermediate Rash Verified 07/02/25 08:24 Review of Systems Review of Systems: CONSTITUTIONAL: Reports malaise, fever. EYES: Denies visual changes, redness, or discharge. ENT: Reports rhinorrhea, congestion, and sore throat. CARDIOVASCULAR: Denies chest pain, palpitations, or edema. RESPIRATORY: Reports cough. Denies dyspnea. GASTROINTESTINAL: Denies abdominal pain, nausea, vomiting, diarrhea SKIN: Denies rash or itching. MUSCULOSKELETAL: Reports myalgia. NEUROLOGIC: Denies headache. All systems reviewed & are unremarkable except as noted in HPI and below PMFSH Past Medical History Medical History Nausea & vomiting Fracture of distal end of right fibula Chondromalacia of left patellofemoral joint Chronic headaches Chills Fever History of MRSA infection Obesity Left anterior knee pain Elevated blood pressure reading Depression Wellness examination HLD (hyperlipidemia) Neuropathy Anxiety Migraines GERD (gastroesophageal reflux disease) Mild intermittent asthma without complication GERD (gastroesophageal reflux disease) Peripheral neuropathy Asthma Hx of migraines Seasonal allergies Surgical History Surgical History S/P hysterectomy H/O dilation and curettage H/O tubal ligation Hx of cholecystectomy History of tonsillectomy H/O: hysterectomy Family History Family History Father Hypertension Asthma Family history of heart disease in male family member before age 55 Family history of malignant melanoma Mother Hypertension Family history of kidney disease Family history of diabetes mellitus in first degree relative Diabetes mellitus Grandparent Family history of arthritis Family history of primary malignant neoplasm of liver Family history of heart disease in male family member before age 55 Other Alzheimer's disease Cerebrovascular accident Heart disease High cholesterol Neuropathy Social History Social History Social History: Smoking packs per day: 0.5 Smoking cigarettes per day: 10.0 Years smoked: 9 Smoking pack-years: 4.50 Smoking status: Former smoker Tobacco type: cigarettes Second hand tobacco smoke exposure: No Smoking end date: 08/12/13 Alcohol intake: current Alcohol use details: Twice a week Substance use: never Substance use type: does not use Living arrangements: with family Occupation/Education: occupation Gender identity (if verbalized by the patient): Female Comments At time of signature, agree with nursing past medical, surgical, social and family history. There is no relevant family history pertinent to the presenting complaint Exam Narrative: GENERAL: Well-appearing, well-nourished, and in no acute distress. HEAD: Normocephalic EYES: PERRLA, conjunctivae clear ENT: Nares clear, turbinates edematous and erythematous, clear discharge. Mucous membranes moist. TM pearly dang with dull light reflex bilaterally; no tragal tenderness. Oropharynx not erythematous without lesions. Tonsils not enlarged a nd without exudate, no drooling, no hoarseness, no trismus, uvula midline. NECK: Supple. No lymphadenopathy CHEST: Clear to auscultation, breath sounds equal. No wheezing, rhonchi, rales, or stridor. No respiratory distress, speaks in full sentences. HEART: Regular rate and rhythm. No murmur heard. SKIN: Warm, dry, no rash. NEURO: Alert and oriented x3. PSYCH: Normal mood and affect Course Course Emergency Course: Patient is aware of diagnosis, understands and agrees to treatment plan. A nticipatory guidance given. Patient agrees to follow-up as directed and is aware of reasons to seek care at the emergency department. Portions of this record may have been created with voice recognition software Level of Care: Express Care Visit Vital Signs Vital signs: Reviewed. MDM - URI/Sore Throat MDM Narrative Medical decision making narrative: Differential diagnosis considered: Wilburn virus, strep pharyngitis, allergic rhinitis, upper respiratory tract infection, sinusitis, rhinosinusitis, nasopharyngitis. viral pharyngitis, otitis media, otitis externa, pneumonia, bronchitis, viral cough syndrome, viral syndrome, and influenza. Exam findings show no acute concerns or changes; patient is non-toxic appearing and is in no distress. Patient is appropriate for outpatient treatment and follow-up. Lab Data Attestation: I reviewed the patient's lab results. Critical Care Time Critical Care Time Critical Care Time: No Discharge Plan Discharge Clinical Impression: Upper respiratory infection Patient Disposition: Home Condition: Stable Instructions: Upper Respiratory Infection (ED) Additional Instructions: Your rapid COVID and flu tests are negative Your rapid strep swab was negative today at [facility]. A throat culture will be sent to the laboratory for further testing. If the test is positive, you will receive a phone call within 48 hours and an appropriate antibiotic will be initiated at that time. Your symptoms are likely due to a viral illness, which is not treated with antibiotics. Viral symptoms can be present for up to a few weeks. -Alternate Tylenol and Motrin per package directions for fever or pain. -Antihistamine medication such as Benadryl at night and Zyrtec during the day can help improve symptoms. -Eat and drink things that are easy to swallow, like tea or soup, or popsicles to suck on. -Oral rinses such as: Salt water gargles and/or may use topical anesthetic (eg. Chloraseptic spray) or lozenges to relieve dryness or throat pain). -Frequent hand washing or hand supervisor shipping is one of the best ways to prevent spread of infection. -Follow up with primary care provider in 2-3 days if condition is not improving; or seek ER visit if you have trouble breathing, cannot drink enough fluids, have muffled voice, difficulty opening your mouth, or severe swelling. Patient Language: Mozambican Prescriptions: New pseudoephedrine HCl [12 Hour Decongestant] 120 mg tablet extended release 120 mg PO Q12H PRN (Reason: nasal congestion) Qty: 20 0RF dextromethorphan-guaifenesin [Mucinex DM] 60-1,200 mg tablet extended release 12 hr 1 tablet PO Q12H Qty: 12 0RF Magic Mouthwash (Dr. Murray) 120 mL suspension 10 ml PO Q4H PRN (Reason: pain) Qty: 120 0RF Rx Instructions: diphenhydramine 12.5 mg/5 mL oral elixir 40 mL; Lidocaine Viscous 2 % mucosal solution 40 mL; Maalox 200 mg-200 mg-20 mg/5 mL oral suspension 40 mL; Per 120 mL No Action fluoxetine 40 mg capsule 40 mg PO DAILY Qty: 30 2RF pantoprazole 20 mg tablet,delayed release (DR/EC) 20 mg PO QAM Qty: 90 2RF cyanocobalamin (vitamin B-12) 1,000 mcg/mL solution 1,000 mcg subcut MONTHLY Qty: 10 0RF lorazepam 0.5 mg tablet 0.5 mg PO DAILY PRN (Reason: anxiety) Qty: 7 0RF ondansetron 4 mg tablet,disintegrating 4 mg PO Q8H PRN (Reason: nausea and vomiting) Qty: 10 0RF budesonide-formoterol [Symbicort] 160-4.5 mcg/actuation HFA aerosol inhaler 2 puff inhalation Q12H Qty: 10.2 3RF lisinopril 10 mg tablet 10 mg PO DAILY Qty: 90 1RF albuterol sulfate 90 mcg/actuation HFA aerosol inhaler 1 puff inhalation Q4-6H PRN (Reason: shortness of breath or wheezing) Qty: 8.5 1RF fluticasone propionate 50 mcg/actuation spray,suspension 1 spray intranasal DAILY Qty: 16 3RF Rx Instructions: administer into each nostril Follow-up/Referrals: Virgil Tracy MD [Primary Care Provider, Family Practice] Time of Disposition: 08:38
[2025-07-02 08:16] VITALS: BP 101/60; PULSE 77; RESP 16; TEMP 36.2; O2SAT 100
[2025-07-05 11:48] LABS: EDCOVIDSCREEN Negative (Negative); EDINFLUASCREEN Negative (Negative); EDINFLUBSCREEN Negative (Negative); EDSTREPNEGPOS1 Negative (Negative)
== END 2025-07-02 08:46 | disposition home or self-care (01) ==
PROVIDERS: Emergency Provider Nurse Practitioner; PCP Family Medicine
DX: J06.9 Acute upper respiratory infection, unspecified (principal); Z20.822 Contact with and (suspected) exposure to COVID-19; E78.5 Hyperlipidemia, unspecified; G62.9 Polyneuropathy, unspecified; K21.9 Gastro-esophageal reflux disease without esophagitis; J45.909 Unspecified asthma, uncomplicated; E66.9 Obesity, unspecified; Z68.27 Body mass index [BMI] 27.0-27.9, adult; F41.9 Anxiety disorder, unspecified; F32.A Depression, unspecified; Z86.16 Personal history of COVID-19; Z87.891 Personal history of nicotine dependence
CPT/HCPCS: 87081; 87426; 87804; 87880; 99213; G0463